=== PATIENT | female | born 1945 | race Caucasian/White ===

== ENCOUNTER → 2021-01-24 15:55 | Outpatient (BNVA) | payer MEDICARE, SELFPAY | PROVIDERS: Family Provider Nurse Practitioner Family; PCP Nurse Practitioner Family; Visit Provider Nurse Practitioner Family | DX: E78.5 Hyperlipidemia, unspecified (principal); J44.1 Chronic obstructive pulmonary disease with (acute) exacerbation; R53.83 Other fatigue; Z20.822 Contact with and (suspected) exposure to COVID-19 | CPT/HCPCS: 80053; 80061; 81003; 84443; 85025; 86140; 87635 ==

== ENCOUNTER → 2021-02-27 10:34 | Outpatient (BNVA) | payer MEDICARE, SELFPAY | PROVIDERS: Family Provider Nurse Practitioner Family; PCP Nurse Practitioner Family; Visit Provider Nurse Practitioner Family | DX: F03.90 Unspecified dementia, unspecified severity, without behavioral disturbance, psychotic disturbance, mood disturbance, and anxiety (principal); R53.83 Other fatigue; J44.9 Chronic obstructive pulmonary disease, unspecified; N32.81 Overactive bladder; Z79.899 Other long term (current) drug therapy | CPT/HCPCS: 82607; 82746; 83036 ==

== ENCOUNTER → 2021-05-21 14:45 | Outpatient (BNVA) | payer MEDICARE, OTHER, SELFPAY | PROVIDERS: Family Provider Nurse Practitioner Family; PCP Nurse Practitioner Family; Visit Provider Nurse Practitioner Family | DX: J44.9 Chronic obstructive pulmonary disease, unspecified (principal) | CPT/HCPCS: 71046 ==

== ENCOUNTER 2021-09-18 09:23 | Outpatient (CLI) | payer MEDICARE, OTHER, SELFPAY ==
--- NOTE | 2021-09-18 09:15 | CT_ITS ---
WS: [id number] LDCT LUNG CANCER SCREENING TECHNIQUE: Noncontrast CT of the chest with coronal and sagittal reformatted images. CLINICAL INFORMATION: F17.210 - Nicotine dependence, cigarettes, uncomplicated COMPARISON: CT chest April 15, 2019 and October 01, 2018 DLP: 78.61 mGy.cm DIvol: Mean CTDIvol: 1.60 (mGy) All CT scans at [facility] use at least one of these dose optimization techniques: automat ed exposure control; mA and/or kV adjustment per patient size (includes targeted exams where dose is matched to clinical indication); or iterative reconstruction. FINDINGS: Spiculated mass suspicious for neoplasm RIGHT upper lobe is increased in size since 2019. Today this measures approximately 13.5 mm compared to 9.4 mm previously. This was FDG positive on the prior PET/ CT 2018. Recommend further evaluation. Slightly spiculated pleural-based nodule in the LEFT upper lobe posteriorly slightly more prominent t govind measuring approximately 8 mm. Fibrotic appearing opacity in the RIGHT upper lobe appears stable measuring 12 mm. Stable 3.5 mm nodule LEFT lower lobe. A few calcified granulomas. Subpleural nodule RIGHT upper lobe appears partially calcified measuring 4 mm. Normal caliber thoracic aorta. Mild aortic calcification. Coronary calcification. Prominent main pulm onary arteries can be seen with pulmonary arterial hypertension. No mediastinal or hilar lymphadenopa thy. No axillary lymphadenopathy. Cholecystectomy clips. Normal GE junction. Adrenal glands are normal. CT/CT lung screening [id number] IMPRESSION: Suspicious enlarging spiculated nodule in the RIGHT upper lobe measuring 13.5 m m which was previously FDG avid in 2018. Findings are highly suspicious for mina plasm and recommend further evaluation with PET/CT and pulmonary consult. This is not easily amenable to CT-guided biopsy due to lung apex location LUNG-RADS: 4B-Suspicious FOLLOW UP: PET/CT recommended
--- NOTE | 2021-09-18 13:58 | PFTS_ITS ---
Date of Study:09/18/21 Date of Dictation: MECHANICS: Forced vital capacity (FVC) is reduced. Forced expiratory volume in one second (FEV1) is reduced. FEV1/FVC is reduced. FLOW VOLUME LOOP: Reduced flow at all lung volumes with significant scooping. LUNG VOLUMES: Not measured DIFFUSING CAPACITY FOR CARBON MONOXIDE: Not measured. INTERPRETATION: The postbronchodilator spirometry is consistent with very severe airflow obstruction. A component of restrictive lung disease cannot be ruled out in the absence of lung volume measurement. The patient has a significant postbronchodilator response. MTDD
== END 2021-09-18 09:24 | disposition home or self-care (01) ==
PROVIDERS: PCP Nurse Practitioner Family; Visit Provider Internal Medicine Pulmonary Disease
DX: Z12.2 Encounter for screening for malignant neoplasm of respiratory organs (principal); F17.210 Nicotine dependence, cigarettes, uncomplicated; J44.9 Chronic obstructive pulmonary disease, unspecified
CPT/HCPCS: 71271; 94060; 94618; J7611

== ENCOUNTER 2021-10-02 05:47 | Day surgery (SDC) | payer MEDICARE, OTHER, SELFPAY ==
[2021-09-28 13:00] VITALS: BMI 20.5
[2021-10-02 06:19] VITALS: BP 121/72; PULSE 79; RESP 18; TEMP 36.3; O2SAT 97
[2021-10-02] MEDS: sodium chloride 0.9% 1,000 ML 30 ML IV ×2 (06:25→08:00)
--- NOTE | 2021-10-02 06:51 | P.HP_ITS ---
Same Day Surgery H&P Indication for Procedure/HPI DATE OF PROCEDURE: October 02, 2021 CHIEF COMPLAINT/INDICATIONFOR SURGICAL PROCEDURE: PET positive lung nodule and hilar lymphadenopathy PREOP DIAGNOSIS: Suspected lung cancer PLANNED PROCEDURE: Bronchoscopy with inspection of the airway, possible endobronchial biopsy, bronchoalveolar lavage, endobronchial ultrasound-guided transbronchial needle aspiration of lymph nodes and control of bleeding Operation Date: 10/02/21 07:00 Proposed Procedures p Ebus [id number]/[id number](Not Applicable) - Kymberly Hernández MD This is 76-year-old lady with previous history of COPD, dementia who was seen by my colleague in June 2021. A low-dose CT scan for lung cancer screening in August 2021 revealed a right upper lobe nodule measuring 1.3 cm. This lesion was apparently PET positive in 2018. The patient had a PET CT on September 26, 2021. The PET/CT revealed a 1.5 cm right upper lobe lung nodule with an SUV of 4.9. A second right upper lobe lung nodule measuring 1.3 cm showed no significant PET positivity. Right hilar lymph node measuring 1 cm had an SUV of 6.4 concerning for metastatic disease. Was also had positivity in the superior mediastinal node measuring 8 mm. The patient is coming in for bronchoscopic evaluation. Medications/Allergies* Home Medications Medication Instructions Recorded Confirmed Type ibuprofen 200 mg tablet 400 mg PO BID PRN tab 09/17/21 09/28/21 History fluticasone fur. 100 mcg-umeclid 1 inh INHALATION DAILY 09/28/21 10/02/21 History 62.5 mcg-vilant 25 mcg inhalat.powder (Trelegy Ellipta) memantine 10 mg tablet 10 mg PO BID 09/28/21 09/28/21 History Allergies/Adverse Reactions Allergy/AdvReac Type Severity Reaction Status Date / Time No Known Allergies Allergy Verified 09/17/21 14:47 Current Medications: Generic Name Dose Route Start Last Admin Trade Name Freq PRN Reason Stop Dose Admin Sodium Chloride 1,000 mls @ 30 mls/hr 10/02/21 06:00 10/02/21 06:25 Sodium Chloride 0.9% IV 10/03/21 05:59 30 mls/hr .Q24H GLADIS Administration Pertinent History/Comorbid Conditions* Medical History (Updated 08/24/21 @ 14:28 by ENRRIQUE Wagner) Anxiety and depression COPD (chronic obstructive pulmonary disease) COPD exacerbation Dementia Exposure to COVID-19 virus Fatigue Hyperlipemia Lower respiratory infection Medication management OAB (overactive bladder) Surgical History (Updated 09/17/21 @ 15:31 by ENRRIQUE Wagner) S/P knee surgery Fracture patella, screw placement [place], [place] Social History Smoking and tobacco status: former smoker Pertinent Exam Findings alert, clear to auscultation bilaterally and regular rate & rhythm General: alert, unable to assess the overall orientation Neck: No jugular venous distention Pulmonary: Reduced breath sound bilaterally, clear to auscultation, no crackles wheezing or rhonchi Cardiovascular: S1-S2 present, distant heart sound, no murmur Abdomen: soft, nontender, nondistended positive bowel sound Skin: No rash Neurologic: No gross motor deficit Recommendations Surgery/Procedure today Other Plans: We will proceed with the bronchoscopy and endobronchial sound guided transbronchial needle aspiration of lymph nodes. Coding Level of Care Code Acute Security Business Analyst for Nathaly Tam
--- NOTE | 2021-10-02 06:55 | P.ANESASSM_ITS ---
Pre-Anesthetic Assessment Height/Weight: Height 1.63 m Weight 54.431 kg Temp Pulse Resp BP Pulse Ox 97.3 F L 79 18 121/72 97 10/02/21 06:19 10/02/21 06:19 10/02/21 06:19 10/02/21 06:19 10/02/21 06:19 Preop Diagnosis: lung nodule Operation Date: 10/02/21 07:00 Proposed Procedures p Ebus [id number](Not Applicable) - Bipjulianna Hernández MD Familial anesthetic complications: none Was Beta Meredith taken within 24 hours: N/A Was Clonidine taken within 24 hours: N/A Last intake: Intake Last Liquid Date 10/01/21 Last Liquid Time 21:00 Last Solid Date 10/01/21 Last Solid Time 18:30 Last Intake: 21:00 Social Tobacco and No alcohol 1 pack(s) per day 60+ pack years Exam alert, oriented x 3 (dementia noted, does not know date or president), clear to auscultation bilaterally (scattered upper wheezes, diminished lower) and regular rate & rhythm Airway Submandibular: within normal limits Cervical ROM: within normal limits Mallampati: Class II Dentition: false Pulmonary Chronic Obstructive Pulmonary Disease, Exertional Dyspnea and Shortness of Breath CV/HEM None reported None reported Hepatic None reported GI None reported Metabolic None reported Musc/skel Osteoarthritis/DJD Neuropsych Anxiety, Dementia and Depression Anesthetic Plan ASA status: 3 Anesthesia: General Risk of > 500 ml blood loss (7ml/kg in children): No Medications/Allergies Home Medications Medication Instructions Recorded Confirmed Last Taken Type albuterol sulfate 90 mcg/actuation 2 puff INHALATION Q6H PRN #18 gm 01/06/20 09/28/21 Unknown Rx aerosol inhaler (ProAir HFA) donepezil 10 mg tablet 10 mg PO DAILY #90 tab 04/25/21 09/28/21 10/01/21 Rx mecobalamin (vitamin B12) 1,000 1,000 mcg SUBLINGUAL DAILY 30 Days 04/25/21 09/28/21 10/01/21 Rx mcg disintegrating #30 tab tablet,sublingual oxybutynin chloride 5 mg tablet 5 mg PO DAILY #90 tab 04/25/21 09/28/21 10/01/21 Rx budesonide 1 mg/2 mL suspension 1 mg (2 mL) INHALATION BID 30 Days 05/24/21 09/28/21 09/28/21 Rx for nebulization #120 ml formoterol fumarate 20 mcg/2 mL 2 ml INHALATION BID #120 ml 05/24/21 09/28/21 09/28/21 Rx solution for nebulization (Perforomist) ipratropium 0.5 mg-albuterol 3 mg See Rx Instructions .ROUTE 05/24/21 09/28/21 09/28/21 Rx (2.5 mg base)/3 mL nebulization .COMPLEX #180 ml soln nebulizers #1 ea 05/24/21 09/28/21 Unknown Rx revefenacin 175 mcg/3 mL solution 175 mcg (3 mL) INHALATION DAILY 05/24/21 09/28/21 09/28/21 Rx for nebulization (Yupelri) #90 ml bupropion HCl 150 mg 24 hr tablet, 150 mg PO DAILY 90 Days #90 tab 08/24/21 0 09/28/21 10/01/21 Rx extended release (Wellbutrin XL) ibuprofen 200 mg tablet 400 mg PO BID PRN tab 09/17/21 09/28/21 Unknown History fluticasone fur. 100 mcg-umeclid 1 inh INHALATION DAILY 09/28/21 10/02/21 10/02/21 History 62.5 mcg-vilant 25 mcg inhalat.powder (Trelegy Ellipta) memantine 10 mg tablet 10 mg PO BID 09/28/21 09/28/21 10/01/21 History Allergies Allergy/AdvReac Type Severity Reaction Status Date / Time No Known Allergies Allergy Verified 09/17/21 14:47 Current Medications Generic Name Dose Route Start Last Admin Trade Name Freq PRN Reason Stop Dose Admin Sodium Chloride 1,000 mls @ 30 mls/hr 10/02/21 06:00 10/02/21 06:25 Sodium Chloride 0.9% IV 10/03/21 05:59 30 mls/hr .Q24H GLADIS Administration PFSH Anesthesia Medical History Anxiety and depression COPD (chronic obstructive pulmonary disease) COPD exacerbation Dementia Exposure to COVID-19 virus Fatigue Hyperlipemia Lower respiratory infection Medication management OAB (overactive bladder) Surgical History (Updated 09/17/21 @ 15:31 by ENRRIQUE Wagner) S/P knee surgery Fracture patella, screw placement [place] Social History Smoking and tobacco status: former smoker Data Anesthesia Cardiac Studies: No Data to Display
[2021-10-02] MEDS: lidocaine 1% INJ 20 mL XX (07:21)
--- NOTE | 2021-10-02 08:02 | PM.OP ---
Operative Report Date of procedure: October 02, 2021 Pre-op diagnosis: Preop Diagnosis lung nodule Brief History: This is a 76-year-old lady coming in for bronchoscopic evaluation for suspected lung cancer. Procedure: Name of the procedure: Bronchoscopy with inspection of the airway, endobronchial ultrasound-guided transbronchial needle aspiration of lymph nodes and control of bleeding. Indication: PET positive right upper lobe lung nodule with right hilar lymphadenopathy and PET positivity. Anesthesia: General anesthesia. Local anesthesia: The vocal cords, trachea, yo and the right and left mainstem bronchi were anesthetized with 1% lidocaine. A total of 6 mL was used. Description of the procedure: The procedure was explained to the patient and her , and the consent was obtained from her . The patient was brought to the OR. The patient underwent laryngeal mask airway placement for general anesthesia. Following induction of general anesthesia, the bronchoscope was advanced through the LMA. The vocal cords appeared to be normal. The vocal cords were anesthetized with 1% lidocaine, 3 mL lidocaine was used. The bronchoscope was then advanced through the vocal cords into the trachea. The upper and lower trachea were normal. This was anesthetized with 1% lidocaine, 2 mL was used. The yo and right and left mainstem bronchi anesthetized with lidocaine. The yo was sharp. In a systematic manner bilateral bronchial tree was then examined. The bronchoscope was advanced into the left mainstem bronchus. The left upper lobe, lingula and left lower lobe bronchi were examined up to the third subsegmental level and no abnormalities were identified. There is no endobronchial lesion, active bleeding or mucous plug. The bronchoscope was then introduced into the right mainstem bronchus. The right upper lobe, right middle lobe and right lower lobe bronchi were examined up to the third subsegmental level and no abnormalities were identified. There was mild airway erythema throughout the lung. The endobronchial ultrasound was introduced through the LMA. Mild lymphadenopathy was noted in station 7 and 10 R lymph node. No significant lymphadenopathy was noted in station are. Fine-needle aspiration was performed sequentially from station 7 and 10. Samples: 1. The transbronchial needle aspiration of the aforementioned lymph node groups were sent for histopathology. Complications: There was no immediate complications.
[2021-10-02 08:04] VITALS: BP 140/79; PULSE 80; RESP 16; TEMP 36.4; O2SAT 96
[2021-10-02 08:10] VITALS: BP 105/80; PULSE 75; RESP 20; TEMP 36.6; O2SAT 100
[2021-10-02 08:13] VITALS: BP 105/80; PULSE 74; RESP 20; TEMP 36.1; O2SAT 99
[2021-10-02 08:31] VITALS: BP 127/66; PULSE 79; RESP 18; O2SAT 95
--- NOTE | 2021-10-02 15:26 | ANE.PACU2 ---
Inpatient post-anesthesia follow up: Airway intact: Yes Vital signs: Temperature 97.0 F Pulse Rate 79 Respiratory Rate 18 Blood Pressure 127/66 Pulse Oximetry 95 Oxygen Delivery Me thod Room Air Oxygen Flow Rate Fraction of Inspir ed Oxygen Hydration adequate: Yes Nausea and vomiting: No Pain level: 2 Mental status: Baseline
== END 2021-10-02 08:35 | disposition home or self-care (01) ==
PROVIDERS: PCP Nurse Practitioner Family; Visit Provider Internal Medicine Critical Care Medicine
PROC: BB4BZZZ Ultrasonography of Pleura (ICD-10-PCS; principal; 2021-10-02 07:00)
PROC: 0BJ08ZZ Inspection of Tracheobronchial Tree, Via Natural or Artificial Opening Endoscopic (ICD-10-PCS; CPT 31622; 2021-10-02 07:00)
DX: R91.1 Solitary pulmonary nodule (principal); J44.9 Chronic obstructive pulmonary disease, unspecified; F03.90 Unspecified dementia, unspecified severity, without behavioral disturbance, psychotic disturbance, mood disturbance, and anxiety; F41.9 Anxiety disorder, unspecified; F32.9 Major depressive disorder, single episode, unspecified; E78.5 Hyperlipidemia, unspecified; Z87.891 Personal history of nicotine dependence
CPT/HCPCS: 31622; 31652; 88305; J2370; J2704; J7030

== ENCOUNTER 2023-01-27 08:24 | Inpatient (IN) | payer MEDICARE, MEDICAID, SELFPAY ==
[2023-01-27] VITALS (11 sets, daily range): BP systolic 112–198; BP diastolic 67–98; PULSE 51–95; RESP 18–22; TEMP 36.4–37.1; O2SAT 9–99; BMI 19.3
--- NOTE | 2023-01-27 08:48 | XR_ITS ---
WS: [id number] XR hip LT 2-3V wo/w pel* [id number] REASON FOR EXAM: fall hip pain FINDINGS: Mildly displaced intertrochanteric fracture of the proximal left femur, without involvement of the in ferior trochanter. No other significant abnormality identified. XR/XR hip LT 2-3V wo/w pel* [id number] IMPRESSION: Left hip fracture as above.
--- NOTE | 2023-01-27 08:50 | XR_ITS ---
WS: [id number] XR chest 1V portable [id number] REASON FOR EXAM: fall FINDINGS: The heart and mediastinum are within normal limits. Calcified granulomatous disease in both hemithoraces. No acute or subacute pulmonary parenchymal or p leural abnormality. Several small mildly dilated bronchi with mild mural thickening no change from 05/21/2021. Mild compression deformity of T7 unchanged compared to 05/21/2021. No acute thoracic bony abnormality . XR/XR chest 1V portable [id number] IMPRESSION: No acute or subacute abnormality.
--- NOTE | 2023-01-27 08:59 | ECG_ITS ---
[facility] Test Date: 2023-01-27 Pat Name: Meenakshi Castano Department: Room: Gender: Female Program/Music Director: : 1945 Requested By: Zac Christiansen Order Number: [id number] Bigg MD: Chance Jauregui M.D. Measurements Intervals [place] Rate: 97 P: 81 MT: 209 QRS: 70 QRSD: 92 T: 90 QT: 338 QTc: 429 Interpretive Statements SINUS RHYTHM MINIMAL ST DEPRESSION [0.025+ mV ST DEPRESSION] Compared to ECG 05/22/2018 13:19:13 ST (T wave) deviation now present Ventricular premature complex(es) no longer present Atrial abnormality no longer present Electronically Signed On 01-27-2023 22:40:11 CDT by Chance Jauregui M.D. [id number]
--- NOTE | 2023-01-27 08:59 | W.ED.EXTPRO ---
HPI - Extremity Problem General: Chief complaint: Extremity Injury, Lower Stated complaint: left hip fracture Time Seen by Provider: 01/27/23 08:51 History of Present Illness: Patient presents to the ER by EMS with complaints of fall and left intertrochanteric hip fracture from x-ray at the correction yesterday. Patient is ambulatory and had an unwitnessed fall for which they think she slipped in her urine and broke her left hip. Patient does have severe dementia. No other noted symptoms at this time. Review of Systems General: Reports: ROS unobtainable due to mental status PFSH ED PFSH: Medical History Anxiety and depression COPD (chronic obstructive pulmonary disease) COPD exacerbation Dementia Exposure to COVID-19 virus Fatigue Hyperlipemia Lower respiratory infection Medication management OAB (overactive bladder) Surgical History S/P knee surgery Fracture patella, screw placement [place], [place] Social History Smoking and tobacco status: former smoker Physical Exam Const: COMMON NORMALS: no acute distress, average body habitus, healthy appearing, alert and well nourished HENMT: COMMON NORMALS: normocephalic, atraumatic, hearing grossly normal bilaterally, external ears normal, Normal external nose present and moist oral mucous membranes HEAD & SCALP: normocephalic and atraumatic NOSE: Normal external nose present EXTERNAL EAR: Yes external ears normal Neck/C-Spine: COMMON NORMALS: full ROM, no lymphadenopathy, supple, no meningeal signs, no JVD and Thyroid normal THYROID: Thyroid normal Lymph: LYMPHATIC: no lymphadenopathy noted Chest: COMMONS NORMALS: normal inspection of the chest and normal palpation of entire chest wall Resp: COMMON NORMALS: normal respiratory effort, No retractions, No use of accessory muscles and clear to auscultation bilaterally AUSCULTATION: clear to auscultation bilaterally Cardio: COMMON NORMALS: no JVD, regular rate, regular rhythm, S1 normal heart sound present, S2 normal heart sound present, No gallops present (Cardio), No clicks present (Cardio), No murmurs present (Cardio) and No rub (Cardio) RATE: regular rate RHYTHM: regular rhythm HEART SOUNDS: S1 normal heart sound present and S2 normal heart sound present GI: COMMON NORMALS: Normal to inspection, nondistended, normoactive bowel sounds present, Soft to palpation, non-tender, No hepatosplenomegaly present and no masses PALPATION: Yes Soft to palpation and Yes No hepatosplenomegaly present : COMMON NORMALS: Yes no CVA tenderness BLADDER/KIDNEY EXAM: Yes no CVA tenderness Back/Pelvis: COMMON NORMALS: no CVA tenderness Extremity: NARRATIVE EXTREMITY EXAM: Pain with palpation over left hip region. Neuro: SENSORIUM/ORIENTATION: Yes alert MENINGEAL SIGNS: Yes no meningeal signs Course Vital Signs: Vital signs: Vital Signs Temperature 98.6 F 01/27/23 08:32 Pulse Rate 95 01/27/23 09:51 Respiratory Rate 18 01/27/23 09:51 Blood Pressure 141/97 01/27/23 09:51 Pulse Oximetry 97 01/27/23 09:51 Oxygen Delivery Me thod Nasal Cannula 01/27/23 08:32 Oxygen Flow Rate 2 01/27/23 08:32 MDM - Extremity (Nontraumatic) Medical Decision Making Patient presents to the ER by EMS with a left intertrochanteric hip fracture from correction. Hip will be rhiannon-rayed and presurgical lab work will be obtained. Anticipate admission. Dr Henry notified, Dr Poe notified excepted for further evaluation and treatment. Differential Diagnosis Unlikely herpes zoster, gout, cellulitis, superficial thrombophlebitis, deep venous thrombosis of upper extremity, lower extremity edema or deep vein thrombosis of lower extremity Medical Records I reviewed the patient's medical records. Lab Data I reviewed the patient's lab results. 01/27/23 09:03 01/27/23 09:03 Radiology Impressions Hip/Pelvis X-Ray 01/27/23 08:48 IMPRESSION: Left hip fracture as above. Chest X-Ray 01/27/23 08:50 IMPRESSION: No acute or subacute abnormality. Laboratory Results WBC 9.2 10^3/uL (4.0-10.0) 01/27/23 09:03 RBC 4.07 10^6/uL (4.1-5.3) L 01/27/23 09:03 Hgb 11.2 g/dL (11.5-15.3) L 01/27/23 09:03 Hct 37.4 % (37.0-47.0) 01/27/23 09:03 MCV 91.9 fl (81-99) 01/27/23 09:03 MCH 27.5 pg (28.0-34.0) L 01/27/23 09:03 MCHC 29.9 g/dL (30.0-36.0) L 01/27/23 09:03 RDW 15.2 % (12.1-15.1) H 01/27/23 09:03 Plt Count 219 10^3/cmm (130-400) 01/27/23 09:03 MPV 10.5 fL (7.4-10.4) H 01/27/23 09:03 Neut % (Auto) 80.9 % 01/27/23 09:03 Lymph % (Auto) 8.9 % 01/27/23 09:03 [place] % (Auto) 8.8 % 01/27/23 09:03 Eos % (Auto) 0.6 % 01/27/23 09:03 Baso % (Auto) 0.5 % 01/27/23 09:03 Neut # (Auto) 7.47 10^3/uL (1.8-7.7) 01/27/23 09:03 Lymph # (Auto) 0.8 10^3/uL (0.8-4.8) 01/27/23 09:03 [place] # (Auto) 0.8 10^3/uL (0.2-0.9) 01/27/23 09:03 Eos # (Auto) 0.1 10^3/uL (0.0-0.8) 01/27/23 09:03 Baso # (Auto) 0.1 10^3/uL (0.0-0.1) 01/27/23 09:03 Nucleated RBC % (auto) 0 % 01/27/23 09:03 Nucleated RBCs # 0.0 /100WBC 01/27/23 09:03 PT 14.00 SECONDS (12.1-14.9) 01/27/23 09:03 INR 1.05 (0.8-1.2) 01/27/23 09:03 Sodium 144 mmol/L (136-145) 01/27/23 09:03 Potassium 4.2 mmol/L (3.5-5.1) 01/27/23 09:03 Chloride 105 mmol/L (98-107) 01/27/23 09:03 Carbon Dioxide 27 mmol/L (22-29) 01/27/23 09:03 Anion Gap 16.2 (5-19) 01/27/23 09:03 BUN 30 mg/dL (8-23) H 01/27/23 09:03 Creatinine 0.9 mg/dL (0.5-0.9) 01/27/23 09:03 GFR Calculation Not Reportable 01/27/23 09:03 Glucose 139 mg/dL (65-115) H 01/27/23 09:03 Calculated Osmolality 306 mOsm/kg (285-295) H 01/27/23 09:03 Calcium 9.0 mg/dL (8.5-10.5) 01/27/23 09:03 Total Bilirubin 0.5 mg/dL (0.15-1.2) 01/27/23 09:03 AST 34 U/L (0-32) H 01/27/23 09:03 ALT 30 U/L (0-33) 01/27/23 09:03 Alkaline Phosphatase 134 U/L (35-105) H 01/27/23 09:03 Total Protein 7.0 g/dL (6.6-8.7) 01/27/23 09:03 Albumin 3.7 g/dL (3.5-5.2) 01/27/23 09:03 Globulin 3.3 g/dL (1.3-4.6) 01/27/23 09:03 Blood Type A Positive 01/27/23 09:03 Rho(D) Type Positive 01/27/23 09:03 EKG Data EKG 1: I personally reviewed and interpreted this EKG as follows: EKG interpretation date: 01/27/23 EKG interpretation time: 08:59 Prior EKG tracings: not available for review Interpretation: EKG showed normal sinus rhythm with a ventricular rate 97 beats minute, CO interval 209, QRS duration 92, QTc 392, minimal ST depression Discharge Plan Discharge Patient Disposition: Admitted As Inpatient Clinical Impression: Closed intertrochanteric fracture of left hip Qualifiers: Encounter type: initial encounter Fracture alignment: displaced Qualified Code(s): S72.142A - Displaced intertrochanteric fracture of left femur, initial encounter for closed fracture Dementia Qualifiers: Dementia type: Alzheimer's Alzheimer's disease onset: unspecified onset Dementia severity: severe Dementia behavioral or psychological symptom: without behavioral, psychotic, or mood disturbance or anxiety Qualified Code(s): G30.9 - Alzheimer's disease, unspecified Fall Qualifiers: Encounter type: initial encounter Qualified Code(s): W19.XXXA - Unspecified fall, initial encounter Condition: Stable Coding Level of Care Code ED Motel Clerk for Nathaly Tam
[2023-01-27 09:17] LABS: Basophils # 0.1 10^3/uL (0.0-0.1); Basophils % 0.5 %; Eosinophils # 0.1 10^3/uL (0.0-0.8); Eosinophils % 0.6 %; Hematocrit 37.4 % (37.0-47.0); Hemoglobin 11.2 g/dL (11.5-15.3); Lymphocytes # 0.8 10^3/uL (0.8-4.8); Lymphocytes % 8.9 %; Mean Corpuscular HGB Conc 29.9 g/dL (30.0-36.0); Mean Corpuscular Hemoglobin 27.5 pg (28.0-34.0); Mean Corpuscular Volume 91.9 fl (81-99); Mean Platelet Volume 10.5 fL (7.4-10.4); Monocytes # 0.8 10^3/uL (0.2-0.9); Monocytes % 8.8 %; Neutrophils # 7.47 10^3/uL (1.8-7.7); Neutrophils % 80.9 %; Nucleated Red Blood Cells % 0 %; Platelet Count 219 10^3/cmm (130-400); Red Blood Count 4.07 10^6/uL (4.1-5.3); Red Cell Distribution Width 15.2 % (12.1-15.1); White Blood Count 9.2 10^3/uL (4.0-10.0)
[2023-01-27 09:31] LABS: INR 1.05 (0.8-1.2)
[2023-01-27 09:46] LABS: Alanine Aminotransferase 30 U/L (0-33); Albumin Level 3.7 g/dL (3.5-5.2); Alkaline Phosphatase 134 U/L (35-105); Anion Gap 16.2 (5-19); Aspartate Amino Transferase 34 U/L (0-32); Blood Urea Nitrogen 30 mg/dL (8-23); Carbon Dioxide 27 mmol/L (22-29); Chloride 105 mmol/L (98-107); Globulin 3.3 g/dL (1.3-4.6); Glucose 139 mg/dL (65-115); Osmolality Calculated 306 mOsm/kg (285-295); Potassium 4.2 mmol/L (3.5-5.1); Sodium 144 mmol/L (136-145); Total Bilirubin 0.5 mg/dL (0.15-1.2)
--- NOTE | 2023-01-27 11:20 | PM.HP ---
Providers/Chief Complaint Admitting Physician: Nato Poe MD Primary Care Provider: ENRRIQUE Fletcher Chief Complaint: left hip fracture History of Present Illness Meenakshi Castano is a 77 year old female presenting from [facility] with history of fall, unwitnessed, Friday night. There is contemplation she slipped in urine. She has underlying dementia so cannot give any history regarding this. She had no other apparent injuries other than lower extremity pain. She got an x-ray the next day, which was reported that night and then she was referred to the emergency department. is with her in the room, reporting her baseline mental status is 2-3 word sentences, able to say the names of some of the kids on occasion, but other times having hallucinations and difficulty recognizing who is visiting her. No recent illness with cough or congestion. No history of anesthesia problems. Does have severe COPD and wheezes at all times. Review of Systems General: Reports: ROS unobtainable due to mental status Medications/Allergies Home Medications Medication Instructions Recorded Confirmed Last Taken Type albuterol sulfate 90 mcg/actuation 2 puff inhalation Q6H PRN 01/06/20 01/27/23 Unknown Rx aerosol inhaler (ProAir HFA) shortness of breath or wheezing #18 grams ipratropium 0.5 mg-albuterol 3 mg See Rx Instructions .Route 05/24/21 01/27/23 09/28/21 Rx (2.5 mg base)/3 mL nebulization .COMPLEX #180 mL soln nebulizers #1 ea 05/24/21 01/27/23 Unknown Rx ibuprofen 200 mg tablet 400 mg PO BID PRN pain 09/17/21 01/27/23 Unknown History fluticasone fur. 100 mcg-umeclid 1 inh inhalation DAILY #28 ea 10/12/21 01/27/23 Unknown Rx 62.5 mcg-vilant 25 mcg inhalat.powder (Trelegy Ellipta) acetaminophen 650 mg 650 mg PO Q6H PRN Pain 01/27/23 01/27/23 Unknown History tablet,extended release alprazolam 0.5 mg tablet 0.5 mg PO TID 01/27/23 01/27/23 Unknown History atorvastatin 10 mg tablet 10 mg PO BEDTIME 01/27/23 01/27/23 Unknown History bisacodyl 10 mg rectal suppository 10 mg [place] DAILY PRN Constipation 01/27/23 01/27/23 Unknown History magnesium hydroxide 400 mg/5 mL 30 ml PO DAILY PRN Constipation 01/27/23 01/27/23 Unknown History oral suspension (Milk of Magnesia) memantine 10 mg tablet 10 mg PO BID 01/27/23 01/27/23 Unknown History mirtazapine 30 mg tablet 30 mg PO BEDTIME 01/27/23 01/27/23 Unknown History polyethylene glycol 3350 17 gram 17 g PO DAILY PRN Constipation 01/27/23 01/27/23 Unknown History oral powder packet (Miralax) sennosides 8.6 mg tablet (Senokot) 8.6 mg PO BID PRN Constipation 01/27/23 01/27/23 Unknown History sodium phosphates 19 gram-7 118 ml [place] DAILY PRN Constipation 01/27/23 01/27/23 Unknown History gram/118 mL enema (Fleet Enema) Allergies Allergy/AdvReac Type Severity Reaction Status Date / Time No Known Allergies Allergy Verified 10/24/21 15:04 PFSH Acute PFSH: Medical History (Updated 01/27/23 @ 11:27 by Nato Poe MD) Anxiety and depression Constipation COPD (chronic obstructive pulmonary disease) COPD exacerbation Dementia Exposure to COVID-19 virus Fatigue History of solitary pulmonary nodule Hyperlipemia Lower respiratory infection Medication management OAB (overactive bladder) Surgical History (Updated 01/27/23 @ 11:27 by Nato Poe MD) History of hysterectomy S/P knee surgery Fracture patella, screw placement [place], [place] Family History (Updated 01/27/23 @ 11:27 by Nato Poe MD) Other CAD (coronary artery disease) Social History (Updated 01/27/23 @ 11:27 by Nato Poe MD) Smoking and tobacco status: former smoker Alcohol intake: never Vitals/I&O/Wt Last Vital Signs Temp 98.6 F 01/27/23 08:32 Pulse 95 01/27/23 09:51 Resp 18 01/27/23 09:51 BP 141/97 01/27/23 09:51 Pulse Ox 97 01/27/23 09:51 O2 Del Method Nasal Cannula 01/27/23 08:32 O2 Flow Rate 2 01/27/23 08:32 Weight last 48 hrs Weight 51.256 kg Physical Exam Narrative: General exam is a female, who has verbal response but is obviously confused HEENT: Atraumatic and normocephalic. Oropharynx clear. Neck is supple no lymphadenopathy thyromegaly Cardiovascular regular rate and rhythm, no murmur Lungs bilateral expiratory wheezes. A few rhonchi at the bases Abdomen is soft with positive bowel sounds. No obvious organomegaly exam was deferred Extremities no cyanosis clubbing or edema, cap refill brisk Skin no rash Neuro no obvious focal deficits Data 01/27/23 09:03 01/27/23 09:03 Other Labs: Chest x-ray reviewed by me demonstrates no infiltrate, calcification noted in the aorta Pelvis x-ray reviewed by me demonstrates left hip fracture I have ordered a urinalysis. LFTs are reviewed. Alk phos 134, AST 34. Bilirubin and ALT all normal Calcium, albumin normal EKG demonstrates a heart rate of 97, normal axis, nonspecific ST-T wave changes A&P Assessment and plan (1) Closed intertrochanteric fracture of left hip: Patient presents with intertrochanteric fracture of the left hip Bedrest currently Place [facility] Pain control with morphine, oxycodone N.p.o. after midnight for possible surgical repair Orthopedic consultation Overall at higher risk for surgery, secondary to severe COPD as well as dementia. Discussed in detail with No direct contraindications to surgery Secondary to severe COPD we will leave option open for spinal mildly giving 1 dose of heparin subcutaneous now, using SCDs for DVT prophylaxis. Qualifiers: Encounter type: initial encounter Fracture alignment: displaced Qualified Code(s): S72.142A - Displaced intertrochanteric fracture of left femur, initial encounter for closed fracture (2) Fall: No other apparent injuries other than hip fracture. Qualifiers: Encounter type: initial encounter Qualified Code(s): W19.XXXA - Unspecified fall, initial encounter (3) Dementia: Severe dementia. Baseline as noted in HPI Continue memantine Qualifiers: Alzheimer's disease onset: unspecified onset Dementia behavioral or psychological symptom: without behavioral, psychotic, or mood disturbance or anxiety Dementia severity: severe Dementia type: Alzheimer's Qualified Code(s): G30.9 - Alzheimer's disease, unspecified; F02.C0 - Dementia in other diseases classified elsewhere, severe, without behavioral disturbance, psychotic disturbance, mood disturbance, and anxiety (4) COPD (chronic obstructive pulmonary disease): reports baseline is wheezing all the time Budesonide twice daily DuoNeb every 6 hours Oxygen as needed Qualifiers: COPD type: unspecified COPD Qualified Code(s): J44.9 - Chronic obstructive pulmonary disease, unspecified Plan Multiple other medical problems as outlined in past medical history Allow natural . Discussed in depth with Heparin x1 for DVT prophylaxis, SCDs for DVT prophylaxis. Following surgery anticoagulation DVT prophylaxis dosing should be resumed Attestations Medical Necessity Statement*: Will need greater than 2 midnight stay for evaluation and treatment of hip fracture Diagnoses Closed intertrochanteric fracture of left hip S72.142A Encounter type: initial encounter Fracture alignment: displaced Fall W19.XXXA Encounter type: initial encounter Dementia G30.9; F02.C0 Alzheimer's disease onset: unspecified onset Dementia behavioral or psychological symptom: without behavioral, psychotic, or mood disturbance or anxiety Dementia severity: severe Dementia type: Alzheimer's COPD (chronic obstructive pulmonary disease) J44.9 COPD type: unspecified COPD Time Spent (min) 49
[2023-01-27] MEDS: ipratropium-albuterol 3 mL Neb INHALATION ×3 (12:18→19:59)
[2023-01-27 13:48] LABS: Glucose Urine UA Norm (Normal); Ketones Urine Negative (Negative); Protein Urine Trace (Negative); Urine Appearance Hazy (CLEAR); Urine Color Yellow (Yellow); pH Urine 5 (5-7)
[2023-01-27 13:49] LABS: Add Urine Culture? Yes; Bacteria Urine 2+ /hpf; Bilirubin Urine Neg (Negative); Blood Urine 2+ (Negative); Leukocyte Esterase Urine 2+ (Negative); Nitrate Urine Positive (Negative); Squamous Epithelial Cell Urine 0-4 /hpf (0-5); Urobilinogen Urine Norm (Negative); WBC Urine 40-55 /hpf (0-5)
[2023-01-27] MEDS: sodium chloride 0.9% 1,000 ML 50 ML IV (15:08)
[2023-01-27] MEDS: heparin 5,000 unit/mL INJ 1 mL 5000 UNIT SUBCUT (15:09)
[2023-01-27] MEDS: cefTRIAXone 1,000 MG in sodium chloride 0.9% (plus) 50 ML 100 MG IV (15:09)
[2023-01-27] MEDS: memantine 5 mg tablet 10 MG PO (18:03)
[2023-01-27] MEDS: docusate sodium 100 mg Capsule PO (18:03)
--- NOTE | 2023-01-27 18:13 | P.CONIM_ITS ---
Providers/Reason For Consult Consulting Physician/Specialty*: Dr. Myriam Henry - Orthopedics Reason for Consult*: Left intertrochanteric hip fracture Requesting Physician: Dr. Zac Christiansen Attending Physician: Nato Poe MD Primary Care Provider: ENRRIQUE Fletcher History of Present Illness History of Present Illness Meenakshi Castano is a 77 year old female who resides at [facility] secondary to severe dementia. The patient was admitted through the emergency department after a fall while at the [facility] which was unwitnessed. There were no other apparent injuries at the time of admission ot her than her left lower extremity pain and inability to ambulate. Her did present to the emergency department with her. At the time of my visit, he was unavailable. Review of Systems General: Reports: ROS unobtainable due to mental status All/Imm: Denies: acute wheezing Medications/Allergies Home Medications Medication Instructions Recorded Confirmed Last Taken Type albuterol sulfate 90 mcg/actuation 2 puff inhalation Q6H PRN 01/06/20 01/27/23 Unknown Rx aerosol inhaler (ProAir HFA) shortness of breath or wheezing #18 grams ipratropium 0.5 mg-albuterol 3 mg See Rx Instructions .Route 05/24/21 01/27/23 09/28/21 Rx (2.5 mg base)/3 mL nebulization .COMPLEX #180 mL soln nebulizers #1 ea 05/24/21 01/27/23 Unknown Rx ibuprofen 200 mg tablet 400 mg PO BID PRN pain 09/17/21 01/27/23 Unknown History fluticasone fur. 100 mcg-umeclid 1 inh inhalation DAILY #28 ea 10/12/21 01/27/23 Unknown Rx 62.5 mcg-vilant 25 mcg inhalat.powder (Trelegy Ellipta) acetaminophen 650 mg 650 mg PO Q6H PRN Pain 01/27/23 01/27/23 Unknown History tablet,extended release alprazolam 0.5 mg tablet 0.5 mg PO TID 01/27/23 01/27/23 Unknown History atorvastatin 10 mg tablet 10 mg PO BEDTIME 01/27/23 01/27/23 Unknown History bisacodyl 10 mg rectal suppository 10 mg [place] DAILY PRN Constipation 01/27/23 01/27/23 Unknown History magnesium hydroxide 400 mg/5 mL 30 ml PO DAILY PRN Constipation 01/27/23 01/27/23 Unknown History oral suspension (Milk of Magnesia) memantine 10 mg tablet 10 mg PO BID 01/27/23 01/27/23 Unknown History mirtazapine 30 mg tablet 30 mg PO BEDTIME 01/27/23 01/27/23 Unknown History polyethylene glycol 3350 17 gram 17 g PO DAILY PRN Constipation 01/27/23 01/27/23 Unknown History oral powder packet (Miralax) sennosides 8.6 mg tablet (Senokot) 8.6 mg PO BID PRN Constipation 01/27/23 01/27/23 Unknown History sodium phosphates 19 gram-7 118 ml [place] DAILY PRN Constipation 01/27/23 01/27/23 Unknown History gram/118 mL enema (Fleet Enema) Allergies Allergy/AdvReac Type Severity Reaction Status Date / Time No Known Allergies Allergy Verified 10/24/21 15:04 Current Medications Generic Name Dose Route Start Last Admin Trade Name Freq PRN Reason Stop Dose Admin Albuterol/Ipratropium 3 ml 01/27/23 14:00 01/27/23 14:36 Ipratropium-Albuterol 3 Ml Neb INHALATION 3 ml Q6H.RESP GLADIS Administration Albuterol/Ipratropium 3 ml 01/27/23 12:08 01/27/23 12:18 Ipratropium-Albuterol 3 Ml Neb INHALATION 3 ml Q4H PRN Administration SHORTNESS OF BREATH Docusate Sodium 100 mg 01/27/23 18:00 01/27/23 18:03 Docusate Sodium 100 Mg Capsule PO 100 mg BID GLADIS Administration Sodium Chloride 1,000 mls @ 50 mls/hr 01/27/23 13:19 01/27/23 15:08 Sodium Chloride 0.9% IV 50 mls/hr .Q20H GLADIS Administration Ceftriaxone Sodium 1,000 mg/ 50 mls @ 100 mls/hr 01/27/23 14:30 01/27/23 16:18 Sodium Chloride IV Infused Q24H GLADIS Infusion Protocol Memantine 10 mg 01/27/23 18:00 01/27/23 18:03 Memantine 5 Mg Tablet PO 10 mg BID GLADIS Administration PFSH Acute PFSH: Medical History Anxiety and depression Constipation COPD (chronic obstructive pulmonary disease) COPD exacerbation Dementia Exposure to COVID-19 virus Fatigue History of solitary pulmonary nodule Hyperlipemia Lower respiratory infection Medication management OAB (overactive bladder) Surgical History History of hysterectomy S/P knee surgery Fracture patella, screw placement [place], [place] Family History Other CAD (coronary artery disease) Social History Smoking and tobacco status: former smoker Alcohol intake: never Dietary Habits: Current diet type/program: regular Vitals/I&O/Wt Last Vital Signs Temp 98.4 F 01/27/23 16:00 Pulse 51 L 01/27/23 16:00 Resp 18 01/27/23 16:00 BP 141/78 01/27/23 16:00 Pulse Ox 98 01/27/23 16:00 O2 Del Method Nasal Cannula 01/27/23 14:36 O2 Flow Rate 2 01/27/23 14:36 01/27/23 01/27/23 01/27/23 06:59 14:59 22:59 Intake Total 50 / 50 Balance 50 / 50 Weight last 48 hrs Weight 113 lb Physical Exam Narrative: The patient is seen and she is sleeping. She is unable to answer any questions secondary to confusion and dementia. Const: COMMON NORMALS: no acute distress GENERAL APPEARANCE: comfortable NUTRITIONAL APPEARANCE: thin HENMT: COMMON NORMALS: normocephalic and atraumatic HEAD & SCALP: normocephalic and atraumatic Eye: GENERAL EYE: appearance normal, both eyes and all related structures Chest: COMMONS NORMALS: normal inspection of the chest Resp: COMMON NORMALS: normal respiratory effort EFFORT & INSPECTION: Yes symmetric chest movement Extremity: LEFT LOWER EXTREMITY: Yes hip joint (Patient will spontaneously m ove left foot) Left hip: Yes inspection (Leg is shortened and externally rotated) and Yes neurovascular exam (Intact distally) Skin: COMMON NORMALS: no rashes or lesions noted GENERAL SKIN EXAM: no rashes or lesions noted Urinary Catheter Management: [facility]: Cath Placed During This Visit: yes Urinary Catheter Date of Insertion: 01/27/23 Urinary Catheter Time of Insertion: 12:15 Data 01/28/23 05:19 01/28/23 05:19 Xray Ortho: My impression: I have personally reviewed the patient's left hip x-rays. These images demonstrate there is a minimally displaced intertrochanteric hip fracture. There is no involvement of the inferior trochanter. A&P Assessment and plan (1) Closed intertrochanteric fracture of left hip: This 77-year-old woman was admitted through the emergency department with histo ry of a fall, unwitnessed, at the [facility] facility where she lives secondary to her dementia. She is seen in her room, but family is not present at the time of initial consultation. Her is contacted on the phone and verbal consent is received to proceed with operative intervention in the form of a gamma nail. Plans are made for the surgical intervention. Qualifiers: Encounter type: initial encounter Fracture alignment: displaced Qualified Code(s): S72.142A - Displaced intertrochanteric fracture of left femur, initial encounter for closed fracture Coding Level of Care Code Acute Code for Chg Fwd Diagnoses Closed intertrochanteric fracture of left hip S72.142A Encounter type: initial encounter Fracture alignment: displaced
[2023-01-27] MEDS: budesonide 0.5 mg/2 mL Neb INHALATION (19:59)
[2023-01-27] MEDS: mirtazapine 30 mg Tablet PO (20:28)
[2023-01-27] MEDS: atorvastatin 40 mg Tablet 20 MG PO (20:28)
[2023-01-27] MEDS: sennosides 8.6 mg Tablet 17.2 MG PO (20:29)
[2023-01-28] VITALS (16 sets, daily range): BP systolic 110–213; BP diastolic 53–114; PULSE 68–94; RESP 14–24; TEMP 36.3–37.1; O2SAT 92–100
--- NOTE | 2023-01-28 | XR_ITS ---
WS: [id number] XR hip LT 2-3V wo/w pel* [id number] REASON FOR EXAM: OR pic. ORIF left hip FINDINGS: Short intramedullary femoral adam and large femoral neck nail fixation of intertrochanteric fracture. Fracture fragments are in good position and alignment. Surgical appliances are intact and in proper position and alignment. IMPRESSION: Left hip fracture with fixation as above.
[2023-01-28 05:53] LABS: Basophils # 0.1 10^3/uL (0.0-0.1); Basophils % 0.7 %; Eosinophils # 0.2 10^3/uL (0.0-0.8); Eosinophils % 2.2 %; Hematocrit 35.2 % (37.0-47.0); Hemoglobin 10.3 g/dL (11.5-15.3); Lymphocytes # 0.9 10^3/uL (0.8-4.8); Lymphocytes % 11.2 %; Mean Corpuscular HGB Conc 29.3 g/dL (30.0-36.0); Mean Corpuscular Hemoglobin 27.3 pg (28.0-34.0); Mean Corpuscular Volume 93.4 fl (81-99); Mean Platelet Volume 10.7 fL (7.4-10.4); Monocytes # 0.9 10^3/uL (0.2-0.9); Monocytes % 10.6 %; Neutrophils # 6.02 10^3/uL (1.8-7.7); Neutrophils % 74.9 %; Nucleated Red Blood Cells % 0 %; Platelet Count 196 10^3/cmm (130-400); Red Blood Count 3.77 10^6/uL (4.1-5.3); Red Cell Distribution Width 15.6 % (12.1-15.1)
[2023-01-28 06:21] LABS: Alanine Aminotransferase 29 U/L (0-33); Albumin Level 3.7 g/dL (3.5-5.2); Alkaline Phosphatase 132 U/L (35-105); Anion Gap 14.1 (5-19); Aspartate Amino Transferase 26 U/L (0-32); Blood Urea Nitrogen 28 mg/dL (8-23); Carbon Dioxide 28 mmol/L (22-29); Chloride 108 mmol/L (98-107); Globulin 2.3 g/dL (1.3-4.6); Glucose 135 mg/dL (65-115); Osmolality Calculated 310 mOsm/kg (285-295); Potassium 4.1 mmol/L (3.5-5.1); Sodium 146 mmol/L (136-145); Total Bilirubin 0.3 mg/dL (0.15-1.2)
--- NOTE | 2023-01-28 06:41 | PC.NURSE ---
OR Pt is leaving for OR via bed with surgical nurse
--- NOTE | 2023-01-28 07:11 | ANES.PREANE2 ---
Pre-Anesthetic Assessment Height/Weight: Height 1.63 m Weight 51.256 kg Temp Pulse Resp BP Pulse Ox O2 Del Method O2 Flow Rate 98.6 F 88 18 110/75 95 Nasal Cannula 2 01/28/23 04:00 01/28/23 04:00 01/28/23 04:00 01/28/23 04:00 01/28/23 04:00 01/27/23 19:59 01/27/23 19:59 Operation Date: 01/28/23 10:25 Proposed Procedures p Trochanteric Femoral Nail(Left) - Myriam Henry MD Familial anesthetic complications: none Was Beta Meredith taken within 24 hours: N/A Was Clonidine taken within 24 hours: N/A Last intake: Intake Last Liquid Date 01/27/23 Last Liquid Time 22:00 Last Solid Date 01/27/23 Last Solid Time 17:00 Social No alcohol and No tobacco Exam alert, oriented x 3, clear to auscultation bilaterally and regular rate & rhythm Airway Mallampati: Class II Dentition: false Pulmonary Chronic Obstructive Pulmonary Disease Metabolic Hyperlipidemia Anesthetic Plan ASA status: 3 Anesthesia: General Risk of > 500 ml blood loss (7ml/kg in children): No Medications/Allergies Home Medications Medication Instructions Recorded Confirmed Last Taken Type albuterol sulfate 90 mcg/actuation 2 puff inhalation Q6H PRN 01/06/20 01/27/23 Unknown Rx aerosol inhaler (ProAir HFA) shortness of breath or wheezing #18 grams ipratropium 0.5 mg-albuterol 3 mg See Rx Instructions .Route 05/24/21 01/27/23 09/28/21 Rx (2.5 mg base)/3 mL nebulization .COMPLEX #180 mL soln nebulizers #1 ea 05/24/21 01/27/23 Unknown Rx ibuprofen 200 mg tablet 400 mg PO BID PRN pain 09/17/21 01/27/23 Unknown History fluticasone fur. 100 mcg-umeclid 1 inh inhalation DAILY #28 ea 10/12/21 01/27/23 Unknown Rx 62.5 mcg-vilant 25 mcg inhalat.powder (Trelegy Ellipta) acetaminophen 650 mg 650 mg PO Q6H PRN Pain 01/27/23 01/27/23 Unknown History tablet,extended release alprazolam 0.5 mg tablet 0.5 mg PO TID 01/27/23 01/27/23 Unknown History atorvastatin 10 mg tablet 10 mg PO BEDTIME 01/27/23 01/27/23 Unknown History bisacodyl 10 mg rectal suppository 10 mg [place] DAILY PRN Constipation 01/27/23 01/27/23 Unknown History magnesium hydroxide 400 mg/5 mL 30 ml PO DAILY PRN Constipation 01/27/23 01/27/23 Unknown History oral suspension (Milk of Magnesia) memantine 10 mg tablet 10 mg PO BID 01/27/23 01/27/23 Unknown History mirtazapine 30 mg tablet 30 mg PO BEDTIME 01/27/23 01/27/23 Unknown History polyethylene glycol 3350 17 gram 17 g PO DAILY PRN Constipation 01/27/23 01/27/23 Unknown History oral powder packet (Miralax) sennosides 8.6 mg tablet (Senokot) 8.6 mg PO BID PRN Constipation 01/27/23 01/27/23 Unknown History sodium phosphates 19 gram-7 118 ml [place] DAILY PRN Constipation 01/27/23 01/27/23 Unknown History gram/118 mL enema (Fleet Enema) Allergies Allergy/AdvReac Type Severity Reaction Status Date / Time No Known Allergies Allergy Verified 10/24/21 15:04 Current Medications Generic Name Dose Route Start Last Admin Trade Name Freq PRN Reason Stop Dose Admin Albuterol/Ipratropium 3 ml 01/27/23 14:00 01/28/23 01:37 Ipratropium-Albuterol 3 Ml Neb INHALATION Not Given Q6H.RESP GLADIS Albuterol/Ipratropium 3 ml 01/27/23 12:08 01/27/23 12:18 Ipratropium-Albuterol 3 Ml Neb INHALATION 3 ml Q4H PRN Administration SHORTNESS OF BREATH Atorvastatin Calcium 20 mg 01/27/23 21:00 01/27/23 20:28 Atorvastatin 40 Mg Tablet PO 20 mg BEDTIME GLADIS Administration Budesonide 0.5 mg 01/27/23 20:00 01/27/23 19:59 Budesonide 0.5 Mg/2 Ml Neb INHALATION 0.5 mg BID.RESPIRATORY GLADIS Administration Docusate Sodium 100 mg 01/27/23 18:00 01/27/23 18:03 Docusate Sodium 100 Mg Capsule PO 100 mg BID GLADIS Administration Sodium Chloride 1,000 mls @ 50 mls/hr 01/27/23 13:19 01/27/23 15:08 Sodium Chloride 0.9% IV 50 mls/hr .Q20H GLADIS Administration Ceftriaxone Sodium 1,000 mg/ 50 mls @ 100 mls/hr 01/27/23 14:30 01/27/23 16:18 Sodium Chloride IV Infused Q24H GLADIS Infusion Protocol Memantine 10 mg 01/27/23 18:00 01/27/23 18:03 Memantine 5 Mg Tablet PO 10 mg BID GLADIS Administration Mirtazapine 30 mg 01/27/23 21:00 01/27/23 20:28 Mirtazapine 30 Mg Tablet PO 30 mg BEDTIME GLADIS Administration Senna 17.2 mg 01/27/23 21:00 01/27/23 20:29 Sennosides 8.6 Mg Tablet PO 17.2 mg BEDTIME GLADIS Administration [facility] Anesthesia Medical History (Updated 01/27/23 @ 11:27 by Nato Poe MD) Anxiety and depression Constipation COPD (chronic obstructive pulmonary disease) COPD exacerbation Dementia Exposure to COVID-19 virus Fatigue History of solitary pulmonary nodule Hyperlipemia Lower respiratory infection Medication management OAB (overactive bladder) Surgical History (Updated 01/27/23 @ 11:27 by Nato Poe MD) History of hysterectomy S/P knee surgery Fracture patella, screw placement [place], [place] Family History (Updated 01/27/23 @ 11:27 by Nato Poe MD) Other CAD (coronary artery disease) Social History (Updated 01/27/23 @ 11:27 by Nato Poe MD) Smoking and tobacco status: former smoker Alcohol intake: never Data Anesthesia 01/28/23 05:19 01/28/23 05:19 Short CBC 01/27/23 01/28/23 Range/Units 09:03 05:19 WBC 9.2 8.0 (4.0-10.0) 10^3/uL Hgb 11.2 L 10.3 L (11.5-15.3) g/dL Hct 37.4 35.2 L (37.0-47.0) % MCV 91.9 93.4 (81-99) fl Plt Count 219 196 (130-400) 10^3/cmm Neut % (Auto) 80.9 74.9 % Neut # (Auto) 7.47 6.02 (1.8-7.7) 10^3/uL BMP 01/27/23 01/28/23 09:03 05:19 Sodium 144 146 H Potassium 4.2 4.1 Chloride 105 108 H Carbon Dioxide 27 28 BUN 30 H 28 H Creatinine 0.9 0.8 Glucose 139 H 135 H Calcium 9.0 9.0 Liver Function 01/27/23 01/28/23 Range/Units 09:03 05:19 Total Bilirubin 0.5 0.3 (0.15-1.2) mg/dL AST 34 H 26 (0-32) U/L ALT 30 29 (0-33) U/L Alkaline Phosphatase 134 H 132 H (35-105) U/L Albumin 3.7 3.7 (3.5-5.2) g/dL Urine 01/27/23 Range/Units 13:12 Urine Color Yellow (Yellow) Urine Appearance Hazy A (CLEAR) Urine pH 5 (5-7) Ur Specific Johnston 1.020 (1.005-1.030) Urine Protein Trace (Negative) Urine Glucose (UA) Norm (Normal) Urine Ketones Negative (Negative) Urine Nitrate Positive H (Negative) Urine Bilirubin Neg (Negative) Ur Leukocyte Esterase 2+ H (Negative) Urine RBC 5-10 H (0-2) /hpf Urine WBC 40-55 H (0-5) /hpf Blood Bank 01/27/23 09:03 Blood Type A Positive Rho(D) Type Positive Antibody Screen Negative Coags 01/27/23 09:03 PT 14.00 INR 1.05 Cardiac Studies: No Data to Display
[2023-01-28] MEDS: acetaminophen 1,000 MG/100 ML PIGGYBACK 400 MG IV (07:21)
[2023-01-28] MEDS: CELEcoxib 200 mg Capsule 400 MG PO (07:22)
[2023-01-28] MEDS: gabapentin 300 mg Capsule PO (07:22)
[2023-01-28] MEDS: sodium chloride 0.9% 1,000 ML 30 ML (07:25)
--- NOTE | 2023-01-28 09:58 | PC.CHAP ---
Pastoral Care Encounter/Spiritual Assessment Type of Contact [] Declined outsole cutter machine visit [] Patient/Family/Request visit [] Outpatient visit [] Follow-up visit [] Physician referral [] Code/Alert [] Routine visit [] Staff referral [] Actively dying [] Patient sleeping [] Family support [] [x] Out of room [] Palliative care [] [] Receiving care in room [] Pre-surgical visit [] Trauma [] Long length of stay [] ICU visit [] Other: Relational/Emotional Strength [] Patient feels connected with others/family/visitors/staff [] Distress [] Loneliness/isolation [] Abandonment Spirituality of Patient [] Person of Brenda [] Attends Evangelical of their Brenda [] Believes in Prayer [] Reads Bible or Restorationism materials [] There are Spiritual issues to be addressed Operational Risk Analyst Interventions [] Prayer [] Active listening [] Non-anxious presence [] Spiritual/emotional support [] Crisis/trauma care [] Spiritual counseling [] Bereavement support [] Provided bereavement packet [] Provided Bible/devotional materials [] Provided toy/stuffed animal, coloring book to patient or family member [] Provided Communion [] Anointing/[place] [] Salvation [] Completed spiritual assessment [] Other: Impact on Illness or Injury [] Angry [] Fearful [] Anxious [] Often cries [] Exhaustion [] Unable to work [] Unable to attend restorationism [] Unable to walk/stand [] Unable to read [] Unable to drive [] Unable to eat/drink [] Unable to sleep [] Unable to be with family [] Patient intubated [] Other: Summary Time spent with patient
--- NOTE | 2023-01-28 10:06 | PM.PN ---
Subjective Subjective: No issues noted through the night. Patient is sleeping, with her in the room, when I checked on her preoperatively. Pain has seemed to be under control. Medications: Reviewed: Yes Vitals/I&O/Wt Last Vital Signs Temp 98.5 F 01/28/23 07:16 Pulse 94 01/28/23 07:16 Resp 18 01/28/23 07:16 BP 133/97 01/28/23 07:16 Pulse Ox 95 01/28/23 07:16 O2 Del Method Room Air 01/28/23 07:16 O2 Flow Rate 2 01/27/23 19:59 01/27/23 01/28/23 01/28/23 22:59 06:59 14:59 Intake Total 340 / 340 100 / 100 Output Total 400 / 400 Balance 340 / 340 -400 / -60 100 / 100 Weight last 48 hrs Weight 51.256 kg Physical Exam Narrative: General exam is a female, sleeping Neck is supple no lymphadenopathy thyromegaly Cardiovascular regular rate and rhythm, no murmur Lungs clear bilaterally Abdomen is soft with positive bowel sounds. No obvious organomegaly exam Addison Extremities no cyanosis clubbing or edema, cap refill brisk Urinary Catheter Management: Addison: Cath Placed During This Visit: yes Reason for Continuing Indwelling Catheter: Required Immobilization for Trauma or Surgery or Anesthesia Urinary Catheter Date of Insertion: 01/27/23 Urinary Catheter Time of Insertion: 12:15 Data 01/28/23 05:19 01/28/23 05:19 Micro: Microbiology 01/27/23 13:12 Urine Culture - Preliminary Urine,Clean Catch Gram Negative Rods A&P Assessment and plan (1) Closed intertrochanteric fracture of left hip: Patient presents with intertrochanteric fracture of the left hip Bedrest currently Continue Addison Pain control with morphine, oxycodone Appreciate orthopedic consultation. Surgery planned today Overall at higher risk for surgery, secondary to severe COPD as well as dementia. Discussed in detail with No direct contraindications to surgery May resume anticoagulation for DVT after surgery if okay with surgeon Qualifiers: Encounter type: initial encounter Fracture alignment: displaced Qualified Code(s): S72.142A - Displaced intertrochanteric fracture of left femur, initial encounter for closed fracture (2) Fall: No other apparent injuries other than hip fracture. Qualifiers: Encounter type: initial encounter Qualified Code(s): W19.XXXA - Unspecified fall, initial encounter (3) Dementia: Severe dementia. Baseline as noted in HPI Continue memantine Qualifiers: Alzheimer's disease onset: unspecified onset Dementia behavioral or psychological symptom: without behavioral, psychotic, or mood disturbance or anxiety Dementia severity: severe Dementia type: Alzheimer's Qualified Code(s): G30.9 - Alzheimer's disease, unspecified; F02.C0 - Dementia in other diseases classified elsewhere, severe, without behavioral disturbance, psychotic disturbance, mood disturbance, and anxiety (4) COPD (chronic obstructive pulmonary disease): Continue budesonide twice daily DuoNeb every 6 hours Oxygen as needed Qualifiers: COPD type: unspecified COPD Qualified Code(s): J44.9 - Chronic obstructive pulmonary disease, unspecified Plan Anemia. Noted slight worsening after admission consistent with hip fracture. Monitor postoperatively as well. UTI. Placed on Rocephin. Await culture. Mild hyponatremia. I have discussed with the preoperative nurse to start fluids at 75 cc an hour. I will evaluate her postoperative orders regarding her fluids after surgery is been completed. Multiple other medical problems as outlined in past medical history Allow natural . Discussed in depth with Received 1 dose of heparin subcutaneous on admission. SCDs for DVT prophylaxis. Heparin to be resumed postoperatively. Did not order continuous dosing to leave the option open for spinal with anesthesia today. Attestations Medical Necessity Statement*: Requires continued hospitalization for definitive treatment for hip fracture Diagnoses Closed intertrochanteric fracture of left hip S72.142A Encounter type: initial encounter Fracture alignment: displaced Fall W19.XXXA Encounter type: initial encounter Dementia G30.9; F02.C0 Alzheimer's disease onset: unspecified onset Dementia behavioral or psychological symptom: without behavioral, psychotic, or mood disturbance or anxiety Dementia severity: severe Dementia type: Alzheimer's COPD (chronic obstructive pulmonary disease) J44.9 COPD type: unspecified COPD Time Spent (min) 21
--- NOTE | 2023-01-28 10:20 | PM.MISC ---
Miscellaneous Note Purpose of Documentation: Preoperative visit with patient's Note: Patient is seen with her in the preoperative holding area. The patient's leg is marked. Secondary to the patient's dementia, site of surgery is confirmed with the patient's during this marking process. Risks and complications as well as planned surgical procedure are discussed in detail with the patient's . He had previously given verbal consent, but further discussion was undertaken in person and questions were answered. He agreed to proceed with the surgery.
[2023-01-28] MEDS: ceFAZolin 2,000 MG in sodium chloride 0.9% (plus) 50 ML 100 MG IV (10:51)
[2023-01-28] MEDS: ceFAZolin 1,000 mg SDV 1000 MG IRRIGATION (11:47)
[2023-01-28] MEDS: BUPivacaine 0.5% INJ 30 mL INJECTION (11:55)
[2023-01-28] MEDS: fentaNYL 50 mcg/mL INJ 2mL IVP (12:39)
--- NOTE | 2023-01-28 12:44 | P.OP_ITS ---
Operative Report Date of procedure: January 28, 2023 Pre-op diagnosis: Left intertrochanteric hip fracture Post-op diagnosis: Left intertrochanteric hip fracture Post-op findings: Left intertrochanteric hip fracture with slight angulation Procedure done: Open reduction internal fixation left intertrochanteric hip fracture Implants: The Boris trochanteric nail system with a size 11 x 180 mm x 125 degree trochanteric gamma 3 nail, a size 10.5 mm x 95 mm lag screw with a distal screw size 5 mm x 32.5 mm Specimens removed/disposition: None Surgeon: Myriam Henry Drop Machine Operator: None Anesthesia: General (Per LMA, ASA 3) Estimated blood loss (mL): 25 IV fluids (mL): 800 Urine output (mL): 100 Complications: None Findings: Slightly angulated left intertrochanteric hip fracture Condition: stable Disposition: PACU (Then return to floor for postoperative rehabilitation and pain management) Brief History: Meenakshi Castano is a 77 year old female who resides at [facility] [place] secondary to severe dementia.? The patient was admitted through the emergency department [facility] a [facility] which was unwitnessed.? There were no other apparent injuries at the time of admission other than her left lower extremity pain and inability to ambulate.? Her did present to the emergency department with her.? Patient was seen last evening as well as this morning prior to surgery. Discussion was undertaken with her regarding the plan for the surgical intervention including risks and complications. He had been consented previously verbally, but consent was once again obtained the morning prior to surgery. Procedure: Patient is brought to the operating theater. After undergoing adequate general anesthesia with LMA, ASA 3, the patient was transferred to the fracture table, positioned on the table and fluoroscopic guidance obtained throughout the surgical procedure. Prior to the commencement of the surgical procedure, a surgical pause was performed. At the time of the surgical pause, we confirmed the site and side of surgery as well as preoperative surgical markings and appropriate and timely administration of IV antibiotics, Ancef 2 g. Availability of equipment was also confirmed. Fluoroscopy was used to confirm the fracture was appropriately reduced in both AP and lateral planes. An incision was then made slightly above the greater trochanter to allow access to the greater trochanter. An awl was used to enter the greater trochanter and a guidewire was subsequently placed. Once the guidewire was confirmed to be in appropriate position in AP and lateral planes, reaming was accomplished over this to allow for the proximal diameter of the nail.? Guidewire was then removed, and an 11 mm x 180 mm x 125 degree gamma 3 trochanteric nail was placed into appropriate position with positioning being confirmed in AP and lateral planes on the x-ray. It passed without difficulty. Guidewire was then passed through the jigging system into the femoral head. We wanted to be center or slightly inferior and posterior to center. Guidewire was placed into appropriate position. Once the guidewire was in appropriate position and this position was confirmed by x-ray.? The guidewire was measured, and we chose a 95 mm lag screw.? We reamed to allow for the lag screw to be placed.? The 95 mm lag screw was then passed into the femoral head through the trochanteric nail. This was passed uneventfully and again position was confirmed in AP and lateral planes. Compression was obtained under fluoroscopic guidance.? The set screw was then placed in position, tightened completely, and subsequently backed off 06/30 turn. The construct was left in position and attention was directed distally. Cannulas were again used to determine appropriate placement for the distal screw. This was placed in position without difficulty. Screw length was measured off of the drill. The appropriate length screw was then obtained and placed in position without difficulty. Once the screw was in position, we confirmed appropriate placement of the components, and we removed the jigging system. Attention was then directed to closure. The hip was copiously irrigated with normal saline with antibiotics. Following this it was dried and closed. Tensor fascia bruce was closed proximally with 0 Vicryl in an interrupted fashion. Subcutaneous tissues were closed with 2-0 Monocryl, and the skin was closed with a continuous 3-0 Monocryl subcuticular stitch. This was then covered with Dermabond, Steri-Strips, and OpSite. The patient was removed from the fracture table and returned to recovery in satisfactory condition. The patient will be discharged to the floor for postoperative rehabilitation and pain management. There were no specimens obtained. Related Problem List Diagnoses (1) Closed intertrochanteric fracture of left hip:
[2023-01-28] MEDS: labetalol 5 mg/mL SDV 20mL 100 MG (12:48)
--- NOTE | 2023-01-28 13:21 | ANE.PACU2 ---
Inpatient post-anesthesia follow up: Airway intact: Yes Vital signs: Temperature 97.3 F Pulse Rate 71 Respiratory Rate 22 Blood Pressure 134/66 Pulse Oximetry 100 Oxygen Delivery Me thod Room Air Oxygen Flow Rate 6 Fraction of Inspir ed Oxygen Hydration adequate: Yes Nausea and vomiting: No Pain level: 1 Mental status: Baseline
[2023-01-28] MEDS: cefTRIAXone 1,000 MG in sodium chloride 0.9% (plus) 50 ML 100 MG IV (14:30)
[2023-01-28] MEDS: docusate sodium 100 mg Capsule PO (17:50)
[2023-01-28] MEDS: memantine 5 mg tablet 10 MG PO (17:51)
[2023-01-28] MEDS: budesonide 0.5 mg/2 mL Neb INHALATION (19:31)
[2023-01-28] MEDS: ipratropium-albuterol 3 mL Neb INHALATION (19:32)
[2023-01-29] VITALS (10 sets, daily range): BP systolic 117–180; BP diastolic 49–84; PULSE 68–92; RESP 14–18; TEMP 36.6–37.2; O2SAT 89–100
[2023-01-29 05:32] LABS: Basophils # 0.1 10^3/uL (0.0-0.1); Basophils % 0.6 %; Eosinophils # 0.3 10^3/uL (0.0-0.8); Eosinophils % 4.2 %; Hematocrit 34.9 % (37.0-47.0); Hemoglobin 10.2 g/dL (11.5-15.3); Lymphocytes # 0.9 10^3/uL (0.8-4.8); Lymphocytes % 10.6 %; Mean Corpuscular HGB Conc 29.2 g/dL (30.0-36.0); Mean Corpuscular Hemoglobin 27.9 pg (28.0-34.0); Mean Corpuscular Volume 95.4 fl (81-99); Mean Platelet Volume 10.5 fL (7.4-10.4); Monocytes # 0.8 10^3/uL (0.2-0.9); Monocytes % 10.5 %; Neutrophils % 73.7 %; Nucleated Red Blood Cells % 0 %; Platelet Count 180 10^3/cmm (130-400); Red Blood Count 3.66 10^6/uL (4.1-5.3); Red Cell Distribution Width 15.4 % (12.1-15.1)
[2023-01-29 05:58] LABS: Anion Gap 15.2 (5-19); Blood Urea Nitrogen 27 mg/dL (8-23); Calcium 8.4 mg/dL (8.5-10.5); Carbon Dioxide 25 mmol/L (22-29); Chloride 111 mmol/L (98-107); Glucose 96 mg/dL (65-115); Osmolality Calculated 309 mOsm/kg (285-295); Potassium 4.2 mmol/L (3.5-5.1); Sodium 147 mmol/L (136-145)
[2023-01-29] MEDS: budesonide 0.5 mg/2 mL Neb INHALATION ×2 (07:17→20:19)
[2023-01-29] MEDS: ipratropium-albuterol 3 mL Neb INHALATION ×3 (07:17→20:19)
[2023-01-29] MEDS: sodium chloride 0.45% 1,000 ML 100 ML IV (08:11)
[2023-01-29] MEDS: enoxaparin 40 mg/0.4 mL Syringe SUBCUT (08:12)
[2023-01-29] MEDS: memantine 5 mg tablet 10 MG PO ×2 (08:16→18:27)
[2023-01-29] MEDS: docusate sodium 100 mg Capsule PO ×2 (08:16→18:27)
--- NOTE | 2023-01-29 09:54 | PM.PN ---
Subjective Subjective: Meenakshi is awake, confused. No complications with surgery yesterday. Medications: Reviewed: Yes Vitals/I&O/Wt Last Vital Signs Temp 97.8 F 01/29/23 08:00 Pulse 83 01/29/23 07:19 Resp 16 01/29/23 08:00 BP 180/64 01/29/23 08:00 Pulse Ox 91 01/29/23 07:19 O2 Del Method Room Air 01/29/23 07:19 O2 Flow Rate 1 01/29/23 04:00 01/28/23 01/29/23 01/29/23 22:59 06:59 14:59 Intake Total 50 / 1360 240 / 240 Output Total 250 / 475 300 / 775 Balance -200 / 885 -300 / 585 240 / 240 Physical Exam Narrative: General exam is a female conversant, confused but able to follow instruction Neck is supple no lymphadenopathy thyromegaly Cardiovascular regular rate and rhythm, no murmur Lungs clear bilaterally Abdomen is soft with positive bowel sounds. No obvious organomegaly Extremities no cyanosis clubbing or edema, cap refill brisk. Left hip dressing clean and dry Urinary Catheter Management: Addison: Cath Placed During This Visit: yes Reason for Continuing Indwelling Catheter: Required Immobilization for Trauma or Surgery or Anesthesia Urinary Catheter Date of Insertion: 01/27/23 Urinary Catheter Time of Insertion: 12:15 Data 01/29/23 05:19 01/29/23 05:19 Micro: Microbiology 01/27/23 13:12 Urine Culture - Preliminary Urine,Clean Catch Gram Negative Rods A&P Assessment and plan (1) Closed intertrochanteric fracture of left hip: Postoperative day #1 status post left hip repair Pain control with morphine, oxycodone Appreciate orthopedic consultation. Physical therapy consultation initiated Lovenox for DVT prophylaxis CBC tomorrow to follow-up postoperative anemia Qualifiers: Encounter type: initial encounter Fracture alignment: displaced Qualified Code(s): S72.142A - Displaced intertrochanteric fracture of left femur, initial encounter for closed fracture (2) Fall: No other apparent injuries other than hip fracture. Qualifiers: Encounter type: initial encounter Qualified Code(s): W19.XXXA - Unspecified fall, initial encounter (3) Dementia: Severe dementia. Baseline as noted in HPI Continue memantine Qualifiers: Alzheimer's disease onset: unspecified onset Dementia behavioral or psychological symptom: without behavioral, psychotic, or mood disturbance or anxiety Dementia severity: severe Dementia type: Alzheimer's Qualified Code(s): G30.9 - Alzheimer's disease, unspecified; F02.C0 - Dementia in other diseases classified elsewhere, severe, without behavioral disturbance, psychotic disturbance, mood disturbance, and anxiety (4) COPD (chronic obstructive pulmonary disease): Continue budesonide twice daily DuoNeb every 6 hours Oxygen as needed Qualifiers: COPD type: unspecified COPD Qualified Code(s): J44.9 - Chronic obstructive pulmonary disease, unspecified Plan Anemia. Noted slight worsening after admission consistent with hip fracture. Monitor postoperatively as well. Currently stable. CBC tomorrow UTI. Placed on Rocephin. Await culture. Currently growing gram-negative rods Mild hypernatremia. Change fluids to half-normal saline. BMP tomorrow Multiple other medical problems as outlined in past medical history Allow natural . Discussed in depth with DVT prophylaxis Attestations Medical Necessity Statement*: Requires continued hospitalization, for close monitoring following hip fracture repair Diagnoses Closed intertrochanteric fracture of left hip S72.142A Encounter type: initial encounter Fracture alignment: displaced Fall W19.XXXA Encounter type: initial encounter Dementia G30.9; F02.C0 Alzheimer's disease onset: unspecified onset Dementia behavioral or psychological symptom: without behavioral, psychotic, or mood disturbance or anxiety Dementia severity: severe Dementia type: Alzheimer's COPD (chronic obstructive pulmonary disease) J44.9 COPD type: unspecified COPD Time Spent (min) 24
[2023-01-29] MEDS: oxyCODONE 5 mg IR Tab/Cap PO (10:19)
--- NOTE | 2023-01-29 15:31 | PM.PN ---
Subjective Subjective: Patient is seen in her room with her son. She is doing well and does not appear to be in pain. Medications: Reviewed: Yes Vitals/I&O/Wt Last Vital Signs Temp 97.8 F 01/29/23 08:00 Pulse 81 01/29/23 14:00 Resp 17 01/29/23 14:00 BP 150/66 01/29/23 12:00 Pulse Ox 91 01/29/23 14:00 O2 Del Method Room Air 01/29/23 14:00 O2 Flow Rate 1 01/29/23 04:00 01/29/23 01/29/23 01/29/23 06:59 14:59 22:59 Intake Total 1010 / 1010 Output Total 300 / 775 450 / 450 Balance -300 / 585 560 / 560 Physical Exam Narrative: The patient is seen and answers questions. She continues with her confusion secondary to dementia. Const: COMMON NORMALS: no acute distress GENERAL APPEARANCE: comfortable NUTRITIONAL APPEARANCE: thin HENMT: COMMON NORMALS: normocephalic and atraumatic HEAD & SCALP: normocephalic and atraumatic Eye: GENERAL EYE: appearance normal, both eyes and all related structures Chest: COMMONS NORMALS: normal inspection of the chest Resp: COMMON NORMALS: normal respiratory effort EFFORT & INSPECTION: Yes symmetric chest movement Extremity: LEFT LOWER EXTREMITY: Yes hip joint (Dressings are dry and intact, no significant ecchymosis) Left hip: Yes palpation (Nontender) and Yes neurovascular exam (Intact with no evidence of DVT) Skin: COMMON NORMALS: no rashes or lesions noted GENERAL SKIN EXAM: no rashes or lesions noted Urinary Catheter Management: Addison: Cath Placed During This Visit: yes Reason for Continuing Indwelling Catheter: Required Immobilization for Trauma or Surgery or Anesthesia Urinary Catheter Date of Insertion: 01/27/23 Urinary Catheter Time of Insertion: 12:15 Data 01/30/23 08:56 01/29/23 05:19 Micro: Microbiology 01/27/23 13:12 Urine Culture - Final Urine,Clean Catch Escherichia coli A&P Assessment and plan (1) Closed intertrochanteric fracture of left hip: This 77-year-old woman was admitted through the emergency department with history of a fall, unwitnessed, at the [facility] facility where she lives secondary to her dementia. The patient has been working with physical therapy, but she has difficulty secondary to her dementia. She is seen in the room with her son today, and I have advised him that I would plan for discharge tomorrow back to her residential facility. We will attempt to get her approved for usp so she can return to her preinjury level of ambulation. Qualifiers: Encounter type: initial encounter Fracture alignment: displaced Qualified Code(s): S72.142A - Displaced intertrochanteric fracture of left femur, initial encounter for closed fracture Attestations Medical Necessity Statement*: Ongoing physical therapy and pain management. Coding Level of Care Code Acute Code for [facility] Diagnoses Closed intertrochanteric fracture of left hip S72.142A Encounter type: initial encounter Fracture alignment: displaced
[2023-01-29] MEDS: ALPRAZolam 0.5 mg Tablet PO (16:25)
[2023-01-29] MEDS: cefTRIAXone 1,000 MG in sodium chloride 0.9% (plus) 50 ML 100 MG IV (16:25)
[2023-01-29] MEDS: atorvastatin 40 mg Tablet 20 MG PO (20:17)
[2023-01-29] MEDS: sennosides 8.6 mg Tablet 17.2 MG PO (20:18)
[2023-01-29] MEDS: mirtazapine 30 mg Tablet PO (20:18)
[2023-01-30] VITALS (12 sets, daily range): BP systolic 114–135; BP diastolic 72–81; PULSE 79–89; RESP 14–18; TEMP 36.7–37.2; O2SAT 90–92
[2023-01-30] MEDS: sodium chloride 0.45% 1,000 ML 100 ML IV (00:04)
[2023-01-30] MEDS: ipratropium-albuterol 3 mL Neb INHALATION ×3 (02:04→13:02)
[2023-01-30] MEDS: enoxaparin 40 mg/0.4 mL Syringe SUBCUT (06:09)
[2023-01-30] MEDS: oxyCODONE 5 mg IR Tab/Cap PO ×2 (07:39→14:50)
[2023-01-30 08:19] LABS: SARS Covid-2 Antigen negative (Negative)
[2023-01-30] MEDS: budesonide 0.5 mg/2 mL Neb INHALATION (08:20)
[2023-01-30 09:23] LABS: Basophils # 0.1 10^3/uL (0.0-0.1); Basophils % 0.6 %; Eosinophils # 0.3 10^3/uL (0.0-0.8); Eosinophils % 3.6 %; Hematocrit 34.8 % (37.0-47.0); Hemoglobin 10.1 g/dL (11.5-15.3); Lymphocytes # 1.1 10^3/uL (0.8-4.8); Mean Corpuscular Hemoglobin 27.4 pg (28.0-34.0); Mean Corpuscular Volume 94.3 fl (81-99); Mean Platelet Volume 10.1 fL (7.4-10.4); Monocytes # 0.9 10^3/uL (0.2-0.9); Monocytes % 10.8 %; Neutrophils # 5.59 10^3/uL (1.8-7.7); Neutrophils % 70.4 %; Nucleated Red Blood Cells % 0 %; Platelet Count 205 10^3/cmm (130-400); Red Blood Count 3.69 10^6/uL (4.1-5.3); Red Cell Distribution Width 15.4 % (12.1-15.1)
[2023-01-30] MEDS: memantine 5 mg tablet 10 MG PO (10:09)
[2023-01-30] MEDS: docusate sodium 100 mg Capsule PO (10:09)
[2023-01-30] MEDS: amoxicillin 500 mg Capsule PO ×2 (10:10→14:51)
--- NOTE | 2023-01-30 10:18 | PM.DCS ---
Discharge Providers Date of Admission: 01/27/23 10:08 Date of Discharge: January 30, 2023 Attending Provider at Admission: Nato Poe MD Attending Provider at Discharge: Nato Poe MD Primary Care Provider: ENRRIQUE Fletcher Diagnoses at Discharge Discharge Diagnosis (1) Closed intertrochanteric fracture of left hip: Status: Acute Qualifiers: Encounter type: initial encounter Fracture alignment: displaced Qualified Code(s): S72.142A - Displaced intertrochanteric fracture of left femur, initial encounter for closed fracture (2) Fall: Status: Acute Qualifiers: Encounter type: initial encounter Qualified Code(s): W19.XXXA - Unspecified fall, initial encounter (3) Dementia: Status: Acute Qualifiers: Alzheimer's disease onset: unspecified onset Dementia behavioral or psychological symptom: without behavioral, psychotic, or mood disturbance or anxiety Dementia severity: severe Dementia type: Alzheimer's Qualified Code(s): G30.9 - Alzheimer's disease, unspecified; F02.C0 - Dementia in other diseases classified elsewhere, severe, without behavioral disturbance, psychotic disturbance, mood disturbance, and anxiety (4) COPD (chronic obstructive pulmonary disease): Status: Acute Qualifiers: COPD type: unspecified COPD Qualified Code(s): J44.9 - Chronic obstructive pulmonary disease, unspecified Reason for Visit Reason for Visit: left hip fracture Hospital Course Hospital Course Meenakshi is a 77-year-old nursing facility patient with dementia who had an unwitnessed fall at the nursing facility. She sustained a fracture to her left hip. No other injuries were apparent. She was placed in the hospital, and orthopedics was consulted. Hip repair occurred on January 28 by ORIF, nail. She tolerated this well without any apparent complications. Mild acute postoperative blood loss anemia was noted. By January 30 she was stable to be discharged back to the nursing facility for continued recovery. She should receive a CBC and a BMP in approximately 1 week. Xanax was discontinued, secondary to fall risk. Wound care instructions, other restrictions, orthopedic follow-up per Ortho. Attempted to call to discuss discharge but did not get an answer. Eliquis will be used for DVT prophylaxis for the next 30 days. A short course of amoxicillin is given for UTI identified on admission. Physical Exam Narrative: General exam no distress, confused but conversant Cardiovascular regular rate rhythm Lungs clear Abdomen soft Extremities no sinus clubbing or edema, dressing left hip clean and dry. No foot drop. Urinary Catheter Management: Addison: Cath Placed During This Visit: yes, but has since been removed by the nurse Reason for Continuing Indwelling Catheter: Decision to DC Catheter Urinary Catheter Date of Insertion: 01/27/23 Urinary Catheter Time of Insertion: 12:15 Date Urinary Catheter Removed: 01/30/23 Time Urinary Catheter Discontinued: 08:28 Discharge Data Studies Completed and Pending Completed Studies During Hospitalization Category Date Time Status XR chest 1V portable [id number] Stat Exams 01/27/23 08:50 Completed XR hip LT 2-3V wo/w pel* [id number] Routine Exams 01/28/23 Completed XR hip LT 2-3V wo/w pel* [id number] Stat Exams 01/27/23 08:48 Completed Pending at discharge Category Date Time Status BMP [Basic Metabolic Panel] Routine Lab 01/30/23 08:56 Received Radiology Impressions Chest X-Ray 01/27/23 08:50 IMPRESSION: No acute or subacute abnormality. Laboratory Results WBC 8.0 10^3/uL (4.0-10.0) 01/30/23 08:56 RBC 3.69 10^6/uL (4.1-5.3) L 01/30/23 08:56 Hgb 10.1 g/dL (11.5-15.3) L 01/30/23 08:56 Hct 34.8 % (37.0-47.0) L 01/30/23 08:56 MCV 94.3 fl (81-99) 01/30/23 08:56 MCH 27.4 pg (28.0-34.0) L 01/30/23 08:56 MCHC 29.0 g/dL (30.0-36.0) L 01/30/23 08:56 RDW 15.4 % (12.1-15.1) H 01/30/23 08:56 Plt Count 205 10^3/cmm (130-400) 01/30/23 08:56 MPV 10.1 fL (7.4-10.4) 01/30/23 08:56 Neut % (Auto) 70.4 % 01/30/23 08:56 Lymph % (Auto) 14.0 % 01/30/23 08:56 Dukes % (Auto) 10.8 % 01/30/23 08:56 Eos % (Auto) 3.6 % 01/30/23 08:56 Baso % (Auto) 0.6 % 01/30/23 08:56 Neut # (Auto) 5.59 10^3/uL (1.8-7.7) 01/30/23 08:56 Lymph # (Auto) 1.1 10^3/uL (0.8-4.8) 01/30/23 08:56 Dukes # (Auto) 0.9 10^3/uL (0.2-0.9) 01/30/23 08:56 Eos # (Auto) 0.3 10^3/uL (0.0-0.8) 01/30/23 08:56 Baso # (Auto) 0.1 10^3/uL (0.0-0.1) 01/30/23 08:56 Nucleated RBC % (auto) 0 % 01/30/23 08:56 Nucleated RBCs # 0.0 /100WBC 01/30/23 08:56 PT 14.00 SECONDS (12.1-14.9) 01/27/23 09:03 INR 1.05 (0.8-1.2) 01/27/23 09:03 Sodium 147 mmol/L (136-145) H 01/29/23 05:19 Potassium 4.2 mmol/L (3.5-5.1) 01/29/23 05:19 Chloride 111 mmol/L (98-107) H 01/29/23 05:19 Carbon Dioxide 25 mmol/L (22-29) 01/29/23 05:19 Anion Gap 15.2 (5-19) 01/29/23 05:19 BUN 27 mg/dL (8-23) H 01/29/23 05:19 Creatinine 0.7 mg/dL (0.5-0.9) 01/29/23 05:19 GFR Calculation Not Reportable 01/29/23 05:19 Glucose 96 mg/dL (65-115) 01/29/23 05:19 Calculated Osmolality 309 mOsm/kg (285-295) H 01/29/23 05:19 Calcium 8.4 mg/dL (8.5-10.5) L 01/29/23 05:19 Total Bilirubin 0.3 mg/dL (0.15-1.2) 01/28/23 05:19 AST 26 U/L (0-32) 01/28/23 05:19 ALT 29 U/L (0-33) 01/28/23 05:19 Alkaline Phosphatase 132 U/L (35-105) H 01/28/23 05:19 Total Protein 6.0 g/dL (6.6-8.7) L 01/28/23 05:19 Albumin 3.7 g/dL (3.5-5.2) 01/28/23 05:19 Globulin 2.3 g/dL (1.3-4.6) 01/28/23 05:19 Urine Color Yellow (Yellow) 01/27/23 13:12 Urine Appearance Hazy (CLEAR) A 01/27/23 13:12 Urine pH 5 (5-7) 01/27/23 13:12 Ur Specific [place] 1.020 (1.005-1.030) 01/27/23 13:12 Urine Protein Trace (Negative) 01/27/23 13:12 Urine Glucose (UA) Norm (Normal) 01/27/23 13:12 Urine Ketones Negative (Negative) 01/27/23 13:12 Urine Blood 2+ (Negative) H 01/27/23 13:12 Urine Nitrate Positive (Negative) H 01/27/23 13:12 Urine Bilirubin Neg (Negative) 01/27/23 13:12 Urine Urobilinogen Norm mg/dL (Negative) 01/27/23 13:12 Ur Leukocyte Esterase 2+ (Negative) H 01/27/23 13:12 Urine RBC 5-10 /hpf (0-2) H 01/27/23 13:12 Urine WBC 40-55 /hpf (0-5) H 01/27/23 13:12 Ur Squamous Epith Cells 0-4 /hpf (0-5) H 01/27/23 13:12 Amorphous Sediment Not Reportable 01/27/23 13:12 Urine Bacteria 2+ /hpf (NONE) H 01/27/23 13:12 SARS-CoV-2 Ag (Rapid) negative (Negative) 01/30/23 07:37 Blood Type A Positive 01/27/23 09:03 Rho(D) Type Positive 01/27/23 09:03 Antibody Screen Negative 01/27/23 09:03 Vitals Last Vital Signs Temp 98.1 F 01/30/23 07:19 Pulse 81 01/30/23 08:24 Resp 16 01/30/23 08:18 BP 135/81 01/30/23 07:19 Pulse Ox 92 01/30/23 08:18 O2 Del Method Room Air 01/30/23 08:18 O2 Flow Rate 1 01/29/23 04:00 Discharge Plan Discharge Patient Disposition: Xfer SNF Condition: Stable Prescriptions: New amoxicillin 500 mg Capsule 500 mg PO TID Qty: 9 0RF oxycodone 5 mg Tablet 5 mg PO Q6H PRN (Reason: Severe Pain) Qty: 20 0RF Eliquis 2.5 mg tablet 2.5 mg PO BID Qty: 60 0RF Continued (DME) nebulizers [facility] [place] See Rx Instructions .ROUTE .MEDSUPPLY Qty: 1 0RF Rx Instructions: As directed ipratropium-albuterol 0.5 mg-3 mg(2.5 mg base)/3 mL solution for nebulization See Rx Instructions .ROUTE .COMPLEX Qty: 180 5RF Dose Instruction: USE 3 ML VIA NEBULIZER EVERY 4 HOURS NEEDED FOR COPD Rx Instructions: USE 3 ML VIA NEBULIZER EVERY 4 HOURS NEEDED FOR COPD ibuprofen 200 mg tablet 400 mg PO BID PRN (Reason: pain) albuterol sulfate [ProAir HFA] 90 mcg/actuation HFA aerosol inhaler 2 puff INHALATION Q6H PRN (Reason: shortness of breath or wheezing) Qty: 18 2RF Trelegy Ellipta 100-62.5-25 mcg blister with device 1 inh inhalation DAILY Qty: 28 0RF Rx Instructions: INHALE 1 PUFF ONCE DAILY 340b Senokot 8.6 mg Tablet 8.6 mg PO BID PRN (Reason: Constipation) Miralax 17 gram Powder In Packet 17 g PO DAILY PRN (Reason: Constipation) atorvastatin 10 mg tablet 10 mg PO BEDTIME acetaminophen 650 mg Tablet Extended Release 650 mg PO Q6H PRN (Reason: Pain) Milk of Magnesia 400 mg/5 mL Suspension 30 ml PO DAILY PRN (Reason: Constipation) bisacodyl 10 mg Suppository 10 mg IN DAILY PRN (Reason: Constipation) mirtazapine 30 mg Tablet 30 mg PO BEDTIME Fleet Enema 19-7 gram/118 mL Enema 118 ml IN DAILY PRN (Reason: Constipation) memantine 10 mg tablet 10 mg PO BID Discontinued alprazolam 0.5 mg tablet 0.5 mg PO TID Discharge Orders: Discharge Order (Routine); Ordered 01/30/23 Ordered By: Myriam Henry Referrals: [facility] [Outside] - 4-7 days (CBC, BMP in 1 week) JESSICA Monterroso, [employer]ING MACHINE OPERATOR [employer] [Primary Care Provider] - Myriam Henry MD [Physician] - 02/19/23 10:45 am Discharge Diet: Usual diet Discharge Activity: Limit activity as instructed, Use walker/crutches as instructed and As per PT/OT instructions Patient Instructions: Amoxicillin/Clavulanate Potassium (By mouth), Oxycodone, Rapid Release (By mouth), Apixaban (By mouth), Opioid Safety Activity Restrictions/Additional Instructions: Postoperative instructions per Ortho Fall precautions Eliquis 2.5 mg twice daily for 30 days Return for any concerns Please keep dressings in place until they come off on their own. They may be removed after 2 weeks if they are still present. Ice to left lower extremity. Weightbearing as tolerated. Physical therapy to work with patient regarding ambulation and strengthening. Discharge Attestations Time Spent in Discharge Care*: greater than 30 min Quality Metrics Clinical Quality Measures [ No reported AMI, CVA or VTE this stay] Coding Level of Care Code 12228 Total time (in minutes) for Discharge: 35 Diagnoses Closed intertrochanteric fracture of left hip S72.142A Encounter type: initial encounter Fracture alignment: displaced Fall W19.XXXA Encounter type: initial encounter Dementia G30.9; F02.C0 Alzheimer's disease onset: unspecified onset Dementia behavioral or psychological symptom: without behavioral, psychotic, or mood disturbance or anxiety Dementia severity: severe Dementia type: Alzheimer's COPD (chronic obstructive pulmonary disease) J44.9 COPD type: unspecified COPD Time Spent (min) 33
--- NOTE | 2023-01-30 10:22 | P.PN_ITS ---
Subjective Subjective: Patient appears comfortable. Dressings are dry and intact. She is confused. Medications: Reviewed: Yes Vitals/I&O/Wt Last Vital Signs Temp 98.1 F 01/30/23 07:19 Pulse 81 01/30/23 08:24 Resp 16 01/30/23 08:18 BP 135/81 01/30/23 07:19 Pulse Ox 92 01/30/23 08:18 O2 Del Method Room Air 01/30/23 08:18 O2 Flow Rate 1 01/29/23 04:00 01/29/23 01/30/23 01/30/23 22:59 06:59 14:59 Intake Total 1400.000 / 2410.000 120 / 120 Output Total 250 / 700 100 / 800 275 / 275 Balance 1150.000 / 1710.000 -100 / 1610.000 -155 / -155 Physical Exam 2 Narrative: The patient is seen and she is sleeping. She is unable to answer any questions secondary to confusion and dementia. Const: COMMON NORMALS: no acute distress GENERAL APPEARANCE: comfortable NUTRITIONAL APPEARANCE: thin HENMT: COMMON NORMALS: normocephalic and atraumatic HEAD & SCALP: normocephalic and atraumatic Eye: GENERAL EYE: appearance normal, both eyes and all related structures Chest: COMMONS NORMALS: normal inspection of the chest Resp: COMMON NORMALS: normal respiratory effort EFFORT & INSPECTION: Yes symmetric chest movement Extremity: LEFT LOWER EXTREMITY: Yes hip joint (No significant swelling about the incisions.) Left hip: Yes inspection (Dressings are dry and intact.), Yes palpation (No tenderness.) and Yes neurovascular exam (Intact distally with no evidence of DVT) Skin: COMMON NORMALS: no rashes or lesions noted GENERAL SKIN EXAM: no rashes or lesions noted Urinary Catheter Management: Addison: Cath Placed During This Visit: yes, but has since been removed by the nurse Reason for Continuing Indwelling Catheter: Decision to DC Catheter Urinary Catheter Date of Insertion: 01/27/23 Urinary Catheter Time of Insertion: 12:15 Date Urinary Catheter Removed: 01/30/23 Time Urinary Catheter Discontinued: 08:28 Data 01/30/23 08:56 01/29/23 05:19 Micro: Microbiology 01/27/23 13:12 Urine Culture - Final Urine,Clean Catch Escherichia coli A&P Assessment and plan (1) Closed intertrochanteric fracture of left hip: This 77-year-old woman was admitted through the emergency department with history of a fall, unwitnessed, at the skilled facility where she lives secondary to her dementia. The patient has been working with physical therapy, but she has difficulty secondary to her dementia. At this point, plans are made to discharge her back to her normal facility. She will be weightbearing as tolerated and should work with physical therapy on regaining her ambulatory status as well as strengthening. Qualifiers: Encounter type: initial encounter Fracture alignment: displaced Qualified Code(s): S72.142A - Displaced intertrochanteric fracture of left femur, initial encounter for closed fracture Attestations Medical Necessity Statement*: Patient will be discharged back to [facility] today for physical therapy with gait training and ambulation. Coding Level of Care Code Acute Code for [facility] Diagnoses Closed intertrochanteric fracture of left hip S72.142A Encounter type: initial encounter Fracture alignment: displaced
[2023-01-30 10:28] LABS: Blood Urea Nitrogen 18 mg/dL (8-23); Calcium 8.1 mg/dL (8.5-10.5); Carbon Dioxide 22 mmol/L (22-29); Chloride 106 mmol/L (98-107); Glucose 115 mg/dL (65-115); Osmolality Calculated 293 mOsm/kg (285-295); Sodium 140 mmol/L (136-145)
[2023-01-30 10:32] LABS: Anion Gap 15.9 (5-19); Potassium 3.9 mmol/L (3.5-5.1)
--- NOTE | 2023-01-30 11:01 | PC.SOCIAL ---
IMM Update pg 2 of IMM updated and reviewed w/ patient's . Copy provided and Copy dated, initialed and placed in chart.
--- NOTE | 2023-01-30 12:11 | PC.NURSE ---
called report to Tessa Ochoa LPN at [facility] [place].
== END 2023-01-30 19:38 | disposition skilled nursing facility (03) | DRG 481 ==
LOC: ER 11:16 → ER IP 12:18 → MEDSURG 12:33
PROVIDERS: Specialist; Admitting Provider Internal Medicine; Emergency Provider Emergency Medicine; PCP Nurse Practitioner Family; Visit Provider Internal Medicine
PROC: 0QH736Z Insertion of Intramedullary Internal Fixation Device into Left Upper Femur, Percutaneous Approach (ICD-10-PCS; CPT 27245; principal; 2023-01-28 10:25)
DX: S72.142A Displaced intertrochanteric fracture of left femur, initial encounter for closed fracture (principal); E87.1 Hypo-osmolality and hyponatremia; N39.0 Urinary tract infection, site not specified; W01.0XXA Fall on same level from slipping, tripping and stumbling without subsequent striking against object, initial encounter; Y92.129 Unspecified place in nursing home as the place of occurrence of the external cause; B96.20 Unspecified Escherichia coli [E. coli] as the cause of diseases classified elsewhere; G30.9 Alzheimer's disease, unspecified; F02.C0 Dementia in other diseases classified elsewhere, severe, without behavioral disturbance, psychotic disturbance, mood disturbance, and anxiety; J44.9 Chronic obstructive pulmonary disease, unspecified; F41.9 Anxiety disorder, unspecified; F32.A Depression, unspecified; E78.5 Hyperlipidemia, unspecified; Z87.891 Personal history of nicotine dependence; Z66 Do not resuscitate; D64.9 Anemia, unspecified; Z79.51 Long term (current) use of inhaled steroids
CPT/HCPCS: 36415; 51702; 71045; 73502; 76000; 80048; 80053; 81001; 85025; 85610; 86850; 86900; 87077; 87086; 87186; 87426; 93005; 94640; 96372; 97161; 97166; 97530; 99285; C1713; J0131; J0690; J0696; J1644; J1650; J2704; J3010; J3490; J7030; J7626

== ENCOUNTER → 2023-02-19 10:21 | Outpatient (BNVA) | payer OTHER, SELFPAY | PROVIDERS: PCP Nurse Practitioner Family; Visit Provider Specialist | DX: S72.142D Displaced intertrochanteric fracture of left femur, subsequent encounter for closed fracture with routine healing; X58.XXXD Exposure to other specified factors, subsequent encounter | CPT/HCPCS: 73502; 99024 ==

== ENCOUNTER → 2023-04-30 13:31 | Outpatient (BNVA) | payer MEDICARE, MEDICAID, SELFPAY | PROVIDERS: PCP Nurse Practitioner Family; Visit Provider Nurse Practitioner | DX: S72.142D Displaced intertrochanteric fracture of left femur, subsequent encounter for closed fracture with routine healing; G30.9 Alzheimer's disease, unspecified; F02.C0 Dementia in other diseases classified elsewhere, severe, without behavioral disturbance, psychotic disturbance, mood disturbance, and anxiety; W19.XXXD Unspecified fall, subsequent encounter | CPT/HCPCS: 73502; 99024 ==